=== PATIENT | female | born 1995 | race Caucasian/White ===

== ENCOUNTER 2020-07-29 10:00 | Outpatient (REF) | payer OTHER, SELFPAY ==
[2020-07-29 10:16] LABS: COVID-19 Test Positive (Negative)
== END 2020-07-29 10:01 | disposition home or self-care (01) ==
LOC: HO.LAB 10:00
PROVIDERS: Visit Provider Internal Medicine
DX: Z20.828 Contact with and (suspected) exposure to other viral communicable diseases (principal)
CPT/HCPCS: 87635

== ENCOUNTER 2020-09-19 12:05 | Outpatient (REF) | payer OTHER, SELFPAY ==
[2020-09-19 13:03] LABS: COVID-19 Test Negative (Negative); IDNOW Serial# 55D5AD1C
== END 2020-09-19 12:06 | disposition home or self-care (01) ==
LOC: HO.EMPCOV 12:05
PROVIDERS: PCP Nurse Practitioner Family; Visit Provider Internal Medicine
DX: Z20.828 Contact with and (suspected) exposure to other viral communicable diseases (principal)
CPT/HCPCS: 87635; C9803

== ENCOUNTER 2020-09-26 09:11 | Outpatient (REF) | payer OTHER, SELFPAY ==
[2020-09-26 09:32] LABS: COVID-19 Test Negative (Negative)
== END 2020-09-26 09:12 | disposition home or self-care (01) ==
LOC: HO.EMPCOV 09:11
PROVIDERS: PCP Nurse Practitioner Family; Visit Provider Internal Medicine
DX: Z20.828 Contact with and (suspected) exposure to other viral communicable diseases (principal)
CPT/HCPCS: 87635; C9803

== ENCOUNTER 2020-12-30 14:24 | Outpatient (REF) | payer OTHER, SELFPAY ==
[2020-12-31 07:25] LABS: SARS COV2 IgG Negative (Negative)
== END 2020-12-30 14:25 | disposition home or self-care (01) ==
LOC: HO.HMGCLDS 14:24
PROVIDERS: PCP Nurse Practitioner Family; Visit Provider Nurse Practitioner Family
DX: Z20.822 Contact with and (suspected) exposure to COVID-19 (principal)
CPT/HCPCS: 36415; 86769

== ENCOUNTER 2021-06-15 08:33 | Outpatient (REF) | payer OTHER, SELFPAY ==
[2021-06-15 11:15] LABS: MANUAL DIFF FLAG NO
[2021-06-15 11:40] LABS: Basophils Percent Auto 0.3 % (0-2); Eosinophils Absolute Auto 0.1 X10*3/uL (0.0-0.4); Eosinophils Percent Auto 1.3 % (0-4); Hematocrit 38.6 % (37-47); Hemoglobin 11.9 g/dl (12.0-16.0); Imm Gran Abs Auto 0.03 X10*3/uL (0.00-0.03); Imm Gran Pct Auto 0.3 % (0.0-0.4); Lymphocytes Percent Auto 33.8 % (20-40); Mean Corpuscular HGB Conc 30.8 g/dl (31.0-35.0); Mean Corpuscular Hemoglobin 25.9 pg (27.0-33.0); Mean Corpuscular Volume 83.9 fL (80-98); Mean Platelet Volume 9.8 fL (9.4-12.3); Monocytes Absolute Auto 0.5 X10*3/uL (0.1-1.2); Monocytes Percent Auto 5.7 % (2-11); Neutrophils Absolute Auto 5.3 X10*3/uL (2.0-8.3); Neutrophils Percent Auto 58.6 % (45-73); Platelet Count 400 X10*3/uL (160-400); Red Cell Distribution Width 15.4 % (11.0-16.0)
[2021-06-15 12:09] LABS: TSH reflex Free T4 2.54 uIU/mL (0.32-4.0)
[2021-06-15 12:17] LABS: Alanine Aminotransferase 15 U/L (0-31); Albumin Level 4.2 g/dL (3.5-5.0); Alkaline Phosphatase 107 U/L (39-117); Anion Gap 11 (12-20); Aspartate Amino Transferase 14 U/L (5-31); Bilirubin Total 0.7 mg/dL (0.0-1.0); Blood Urea Nitrogen 13 mg/dL (9-16); Calcium 9.6 mg/dL (8.4-10.2); Carbon Dioxide 24 mmol/L (22-29); Chloride 107 mmol/L (96-108); Cholesterol 175 mg/dL; Estimated Glomerular Filt Rate > 60; Glucose Fasting 95 mg/dL (60-99); HDL Cholesterol 62 mg/dL; LDL Cholesterol Calculated 91 mg/dl; Potassium 4.4 mmol/L (3.3-5.1); Sodium 138 mmol/L (135-145); Total Protein 7.4 g/dL (6.5-8.0); Triglycerides 113 mg/dL
== END 2021-06-15 08:34 | disposition home or self-care (01) ==
LOC: HO.HMGCLDS 08:33
PROVIDERS: PCP Nurse Practitioner Family; Visit Provider Nurse Practitioner Family
DX: Z00.00 Encounter for general adult medical examination without abnormal findings (principal)
CPT/HCPCS: 36415; 80053; 80061; 84443; 85025

== ENCOUNTER 2021-07-13 12:48 | Outpatient (REF) | payer OTHER, SELFPAY ==
[2021-07-13 13:57] LABS: Appearance Urine CLEAR; Color Urine YELLOW; Glucose Urine UA NEG (NEG); Leukocyte Esterase Urine 1+ (NEG); Nitrite Urine NEG (NEG); UACC Culture Trigger YES; Urine Blood NEG (NEG); Urine Ketones NEG (NEG); Urine Protein NEG (NEG-TRACE)
[2021-07-13 14:50] LABS: Bacteria Urine TRACE /LPF; RBC Urine 0 /HPF (0); Squamous Epithelial Cell Urine 1+ /LPF; WBC Clumps Urine NOTED
== END 2021-07-13 12:49 | disposition home or self-care (01) ==
LOC: HO.HMGCLDS 12:48
PROVIDERS: PCP Nurse Practitioner Family; Visit Provider Nurse Practitioner Family
DX: Z00.00 Encounter for general adult medical examination without abnormal findings (principal)
CPT/HCPCS: 81001; 81003; 87086

== ENCOUNTER 2022-06-21 15:16 | Outpatient (REF) | payer OTHER, SELFPAY ==
--- NOTE | ~2022-06-21 | US_ITS ---
EXAMINATION: US PELVIS CLINICAL INFORMATION: Pelvic and perineal pain COMPARISON: None TECHNIQUE: Ultrasound of the pelvis is performed using both transabdominal and transvaginal transducers along with Doppler. Transvaginal imaging is performed due to inadequate visualization transabdominally. FINDINGS: Transabdominal transvaginal study. Uterus is measuring 8.3 x 3 x 5.5 cm. The echogenicity within the canal consistent with an IUD. The canal is not widened. The right ovary is 3.8 x 2.6 x 1.9 cm. No internal vascularity is demonstrated by the plate worker. There is a probable complex cyst measuring 1.8 x 1.2 x 1.4 cm associated with the ovary. No internal vascularity is demonstrated. The borders are poorly defined. No internal vascularity is demonstrated by the plate worker The left ovary is 2.4 x 1.7 x 1.8 cm. Volume 3.9 mL. No internal vascularity is demonstrated by the plate worker. US/US pelvic and transvaginal IMPRESSION: IUD within the uterine canal. Hypoechoic probable complex cyst associated with the right ovary which is nonvascular. The ovaries are within normal limits for size. Adequate vascularity is not demonstrated by the plate worker. Correlation recommended
== END 2022-06-21 15:17 | disposition home or self-care (01) ==
LOC: HO.US 15:16
PROVIDERS: Visit Provider Nurse Practitioner Family
DX: R10.2 Pelvic and perineal pain (principal)
CPT/HCPCS: 76830; 76856

== ENCOUNTER 2022-06-22 10:16 | Outpatient (REF) | payer OTHER, SELFPAY ==
[2022-06-22 11:12] LABS: MANUAL DIFF FLAG NO
[2022-06-22 11:24] LABS: Basophils Percent Auto 0.4 % (0-2); Eosinophils Absolute Auto 0.1 X10*3/uL (0.0-0.4); Eosinophils Percent Auto 0.9 % (0-4); Hematocrit 38.7 % (37.0-47.0); Hemoglobin 12.1 g/dl (12.0-16.0); Imm Gran Abs Auto 0.01 X10*3/uL (0.00-0.03); Imm Gran Pct Auto 0.1 % (0.0-0.4); Lymphocytes Absolute Auto 2.2 X10*3/uL (1.2-4.9); Lymphocytes Percent Auto 32.3 % (20-40); Mean Corpuscular HGB Conc 31.3 g/dl (31.0-35.0); Mean Corpuscular Hemoglobin 25.6 pg (27.0-33.0); Mean Corpuscular Volume 81.8 fL (80.0-98.0); Mean Platelet Volume 9.3 fL (9.4-12.3); Monocytes Absolute Auto 0.3 X10*3/uL (0.1-1.2); Monocytes Percent Auto 4.9 % (2-11); Neutrophils Absolute Auto 4.1 x10*3/uL (2.0-8.3); Neutrophils Percent Auto 61.4 % (45-73); Platelet Count 371 X10*3/uL (160-400); Red Blood Count 4.73 X10*6/uL (4.20-5.50); White Blood Count 6.7 X10*3/uL (4.8-10.8)
[2022-06-22 11:26] LABS: Appearance Urine Clear; Color Urine Yellow; Glucose Urine UA Negative (Negative); Leukocyte Esterase Urine Moderate (2+) (Negative); Nitrite Urine Negative (Negative); Specific Gravity - Urine 1.015 (1.005-1.025); UMIC TRIGGER UACC YES; Urine Blood Negative (Negative); Urine Ketones Negative (Negative); Urine Protein Negative (Neg-Trace)
[2022-06-22 11:34] LABS: Bacteria Urine None Seen (None Seen); Hyaline Casts Urine 0-2 /LPF (0-2); RBC Urine 0-2 /HPF (0-2); UACC Culture Trigger YES
[2022-06-22 11:40] LABS: Alanine Aminotransferase 19 U/L (0-31); Albumin Level 4.2 g/dL (3.5-5.0); Alkaline Phosphatase 99 U/L (39-117); Anion Gap 13 (12-20); Aspartate Amino Transferase 14 U/L (5-31); Bilirubin Total 0.6 mg/dL (0.0-1.0); Blood Urea Nitrogen 10 mg/dL (9-16); Carbon Dioxide 25 mmol/L (22-29); Chloride 105 mmol/L (96-108); Cholesterol 153 mg/dL; Estimated Glomerular Filt Rate > 60; Glucose Fasting 89 mg/dL (60-99); HDL Cholesterol 52 mg/dL; LDL Cholesterol Calculated 89 mg/dl; Potassium 4.3 mmol/L (3.3-5.1); Sodium 139 mmol/L (135-145); Total Protein 7.4 g/dL (6.5-8.0); Triglycerides 61 mg/dL
[2022-06-22 12:19] LABS: Folate > 20.0 ng/mL (> or = 4.0); Vitamin B12 1713 pg/mL (200-900)
== END 2022-06-22 10:17 | disposition home or self-care (01) ==
LOC: HO.HMGCLDS 10:16
PROVIDERS: PCP Nurse Practitioner Family; Visit Provider Nurse Practitioner Family
DX: Z00.00 Encounter for general adult medical examination without abnormal findings (principal); E53.8 Deficiency of other specified B group vitamins
CPT/HCPCS: 36415; 80053; 80061; 81001; 82607; 82746; 84443; 85025; 87086

== ENCOUNTER 2022-06-25 16:10 | Emergency (ER) | payer OTHER, SELFPAY ==
--- NOTE | ~2022-06-25 | CT_ITS ---
EXAMINATION: CT ABDOMEN AND PELVIS WITHOUT CONTRAST CLINICAL INFORMATION: Left lower quadrant abdominal pain COMPARISON: None TECHNIQUE: Multidetector volumetric imaging was performed from the superior aspect of the liver through the pubic symphysis. Sagittal and coronal reformatted images were obtained on the technologist's workstation. This CT examination was performed using dose optimization techniques as appropriate, variously including the following: *Automated exposure control *Adjustment of mA and/or kV according to patient size (this includes techniques or standardized protocols for targeted exams where dose is matched to indication/reason for exam; i.e. extremities or head) *Use of iterative reconstruction technique DLP: 896 mGy-cm FINDINGS: LUNG BASES: The visualized lung bases are unremarkable. LIVER, GALLBLADDER, AND BILIARY TREE: The liver is normal in size, shape, and attenuation. No focal hepatic lesion or biliary ductal dilatation is present. The gallbladder is unremarkable with no evidence of radiopaque gallstones, gallbladder wall thickening, or obvious pericholecystic inflammatory changes. PANCREAS: Unremarkable. SPLEEN: Unremarkable. ADRENAL GLANDS: Unremarkable. KIDNEYS AND URETERS: The kidneys are normal in size, shape, and attenuation. No hydronephrosis, hydroureter, or calculi seen. No perinephric stranding. BLADDER: Unremarkable. GASTROINTESTINAL TRACT: There is no acute abnormality. There is no bowel wall thickening /edema. There is no bowel obstruction. There is a moderate to large volume of stool in the colon. The appendix is normal . The small bowel loops are unremarkable. The stomach is normal. There is no hiatal hernia. ABDOMINAL WALL: No significant hernia is appreciated. LYMPH NODES: Normal. VASCULAR: Unremarkable. PELVIC VISCERA: Uterus is anteverted. IUD in endometrial cavity. No adnexal abnormality. OSSEOUS STRUCTURES: Unremarkable. CT/CT abdomen pelvis wo IV con IMPRESSION: No significant abnormality. Fleischner guidelines were followed.
[2022-06-25 17:06] LABS: MANUAL DIFF FLAG NO
[2022-06-25 17:07] LABS: Basophils Percent Auto 0.3 % (0-2); Eosinophils Absolute Auto 0.1 X10*3/uL (0.0-0.4); Eosinophils Percent Auto 0.7 % (0-4); Hematocrit 39.3 % (37.0-47.0); Hemoglobin 12.3 g/dl (12.0-16.0); Imm Gran Abs Auto 0.03 X10*3/uL (0.00-0.03); Imm Gran Pct Auto 0.3 % (0.0-0.4); Lymphocytes Absolute Auto 2.2 X10*3/uL (1.2-4.9); Lymphocytes Percent Auto 24.4 % (20-40); Mean Corpuscular HGB Conc 31.3 g/dl (31.0-35.0); Mean Corpuscular Hemoglobin 25.7 pg (27.0-33.0); Mean Corpuscular Volume 82.2 fL (80.0-98.0); Mean Platelet Volume 8.9 fL (9.4-12.3); Monocytes Absolute Auto 0.5 X10*3/uL (0.1-1.2); Monocytes Percent Auto 5.1 % (2-11); Neutrophils Absolute Auto 6.3 x10*3/uL (2.0-8.3); Neutrophils Percent Auto 69.2 % (45-73); Platelet Count 334 X10*3/uL (160-400); Red Blood Count 4.78 X10*6/uL (4.20-5.50); Red Cell Distribution Width 15.5 % (11.0-16.0); White Blood Count 9.1 X10*3/uL (4.8-10.8)
[2022-06-25 17:25] LABS: Alanine Aminotransferase 16 U/L (0-31); Albumin Level 4.3 g/dL (3.5-5.0); Alkaline Phosphatase 94 U/L (39-117); Anion Gap 12 (12-20); Aspartate Amino Transferase 12 U/L (5-31); Bilirubin Total 0.4 mg/dL (0.0-1.0); Blood Urea Nitrogen 12 mg/dL (9-16); Calcium 9.9 mg/dL (8.4-10.2); Carbon Dioxide 26 mmol/L (22-29); Chloride 107 mmol/L (96-108); Estimated Glomerular Filt Rate > 60; Glucose Random 94 mg/dL (60-115); Potassium 4.4 mmol/L (3.3-5.1); Sodium 141 mmol/L (135-145); Total Protein 7.4 g/dL (6.5-8.0)
[2022-06-25 17:41] LABS: COVID-19 Test Negative (Negative); IDNOW Serial# 16C4AD1C
[2022-06-25 18:37] VITALS: BP 115/72; PULSE 64; RESP 18; TEMP 37.1; O2SAT 99; BMI 34.7
[2022-06-25] MEDS: Ondansetron ODT 4 MG TAB.RAPDIS TRANSLINGU (18:40)
[2022-06-25 19:00] LABS: Appearance Urine Clear; Color Urine Yellow; Glucose Urine UA Negative (Negative); Leukocyte Esterase Urine Trace (Negative); Nitrite Urine Negative (Negative); PH 5.5 (5.0-9.0); Specific Gravity - Urine 1.025 (1.005-1.025); UMIC TRIGGER UACC YES; Urine Blood Negative (Negative); Urine Ketones Negative (Negative); Urine Protein Negative (Neg-Trace)
[2022-06-25 19:05] LABS: UPreg QC Valid YES; Urine Pregnancy NEGATIVE (NEGATIVE)
[2022-06-25 19:12] LABS: Bacteria Urine None Seen (None Seen); Hyaline Casts Urine 0-2 /LPF (0-2); RBC Urine 0-2 /HPF (0-2); Squamous Epithelial Cell Urine 0-2 /HPF (0-2); WBC Urine 0-5 /HPF (0-5)
[2022-06-25 23:08] VITALS: BP 120/56; PULSE 68; RESP 20; O2SAT 100
--- NOTE | 2022-06-25 23:10 | ED_ITS ---
HPI - Abdominal Pain General Chief Complaint: Abdominal Pain Stated Complaint: lower abd pain Time Seen by Provider: 06/25/22 16:26 Source: patient Mode of arrival: ambulatory Limitations: no limitations History of Present Illness HPI narrative: 26-year-old female presents for left-sided abdominal pain that has been persistent and increasing over the past month. States that her pain is intense, is sharp and stabbing, causes nauseousness and dyspareunia. This pain is debilitating, and prevents her from ambulating. She does have history of endometrial polyp resection. She does not report fevers or chills, abnormal vaginal bleeding, abdominal distension, chest pain or pressure, palpitations, weakness or fatigue. MD elicited complaint: abdominal pain Pertinent past history: other (Endometrial polyp resection) Onset (ago): month(s) (1) Pain Consistency: intermittent Location: LLQ Severity: severe Pain scale (0-10): 9 Quality: aching Radiation: LLQ Migration to: no migration Exacerbating factors: movement Relieving factors: rest Associated symptoms: nausea Related Data Patient : No Home Medications Medication Instructions Recorded Confirmed ascorbate calcium (vitamin C) 500 500 mg PO DAILY 12/01/20 06/20/22 mg tablet folic acid 1 mg tablet 1 mg PO DAILY 12/01/20 06/20/22 levetiracetam 1,000 mg tablet 1,000 mg PO BID 12/01/20 06/20/22 (Keppra) mecobalamin (vitamin B12) 1,000 1,000 mcg PO DAILY 12/01/20 06/20/22 mcg chewable tablet (B12 Active) vitamin B complex (Super B-50 1 cap PO DAILY 12/01/20 06/20/22 Complex capsule) Previous Rx's Medication Instructions Recorded omeprazole 20 mg capsule,delayed 20 mg PO DAILY 90 days #90 caps 04/11/22 release sertraline 100 mg tablet 150 mg PO DAILY 90 days #135 tabs 06/20/22 cefuroxime axetil 500 mg tablet 500 mg PO Q12H 7 days #14 tabs 06/26/22 oxycodone 5 mg tablet 5 mg PO Q6H PRN pain 3 days #12 06/26/22 tabs Allergies Allergy/AdvReac Type Severity Reaction Status Date / Time Antihistamines Allergy Unknown SEIZURES Unverified 06/20/22 18:32 [ANTIHISTAMINES] duloxetine [From CYMBALTA] AdvReac Unknown SEIZURES Unverified 06/20/22 18:32 montelukast [From SINGULAIR] AdvReac Unknown SEIZURES Unverified 06/20/22 18:32 anti-histamines Allergy Unknown Unknown Uncoded 06/20/22 18:32 cymbalta Allergy Unknown seizures Uncoded 06/20/22 18:32 Antihistamine AdvReac Unknown seizures Uncoded 06/20/22 18:32 Louis AdvReac Unknown GI upset Uncoded 06/20/22 18:32 Review of Systems Review of Systems Constitutional: No Fever, No Chills ENT/Mouth: No sore throat Eyes: No Eye Pain, No Swelling, No Redness Cardiovascular: No Chest Pain, No SOB Respiratory: No Cough, No Sputum, No Wheezing Gastrointestinal: positive Nausea, no Vomiting, No Diarrhea, positive left lower quadrant abdominal pain Genitourinary: No Dysuria, no urinary frequency, no Hematuria, no Flank Pain, no hesitancy Musculoskeletal: No joint pain, No Myalgias Skin: No Skin Lesions, No rash Neuro: No Weakness, No Numbness, No Headache Psych: No Anxiety/Panic, No Depression Heme/Lymph: No Bruising, No Lymphadenopathy Endocrine: No Polyuria, No Polydipsia Yes all other systems are reviewed and are negative [facility] Past Medical History Attestation statement: The following information was validated with the patient. Source: old records reviewed Family History Family History Father Substance use disorder Social History Social History Housing: House Alcohol intake: never Patient Tobacco Use Status: Never used Tobacco Second Hand Smoke Exposure: No Advance Directives: No Patient : No service: No Current occupational status: employed Current occupation: [employer] Current occupational exposures/hazards: Yes Cognitive needs: No Hearing needs: No Vision needs: No Physical Exam ED Vital Signs: Vital Signs - 24 hr 06/25/22 18:37 06/25/22 23:08 Temperature 98.7 F Pulse Rate 64 68 Respiratory Rate 18 20 Blood Pressure 115/72 120/56 L Pulse Oximetry 99 100 Oxygen Delivery Method Room Air Room Air BMI result Body Mass Index 34.7 Appearance: Alert. Oriented X3. No acute distress. Eyes: Pupils equal, round and reactive to light. ENT: Pharynx normal. Neck: Normal inspection. Neck supple. CVS: Normal heart rate and rhythm. Pulses normal. Respiratory: No respiratory distress. Breath sounds normal. Abdomen: Soft and left lower quadrant tenderness to palpation. Skin: Skin warm and dry. Normal skin color. Normal skin turgor. Extremities: No lower extremity edema. Gait well balanced well coordinated. Neuro: No motor deficit. No sensory deficit. Cranial nerves 2-12 intact Course Course Course Narrative: 7 hours 51 minute wait time in the emergency department. Labs drawn all patient was in the waiting room, labs are unremarkable, trace leukocyte esterase. 26-year-old female presents with 1 month of consistent colicky left lower quadrant abdominal pain, worsening with her menstrual cycle and movement. States the pain is so bad that she has doubled over, and has a difficult time functioning. She has had multiple appointments for evaluation all with negative workup, had a pelvic ultrasound on 06/21/2022 that indicated a known right ovarian complex cyst with insufficient flow to bilateral ovaries. Patient states to be discouraged because of lack of meaningful findings from prior workups. She does have a history of an ovarian endometrial cyst resection in the past. Does have an IUD in place, anteverted uterus noted on the ultrasound. Patient has dyspareunia without significant bleeding. Feels that her symptoms may be consistent with endometriosis versus pelvic congestion syndrome. Will order CT scan of abdomen and pelvis. CT scan of abdomen pelvis are negative for acute findings requiring emergent intervention. Does redemonstrate ovarian cyst. I do feel that patient's symptoms could be consistent with pelvic congestion syndrome verses endometriosis. She does need to follow-up with marketing operations coordinator, I did refer her to Dr. Amaral for a 2nd opinion. Will treat with cefuroxime for urinalysis positive for UTI with trace leukocyte esterase. Will give oxycodone for pain management. Patient does understand the risks involved with taking and opioid medication, but feels that [id number] medications are ineffective at this time. Patient verbalized understanding of and agrees to plan of care discharge home. Verbalized understanding of signs and symptoms indicating need for emergent intervention. MDM - Abdominal Pain Differential Diagnosis Differential diagnosis: Likely abdominal pain and ovarian cyst Differential diagnosis narrative:: Endometriosis, pelvic congestion syndrome Medical Records Attestation: I reviewed the patient's medical records. Lab Data Attestation: I reviewed the patient's lab results. Result diagrams: 06/25/22 16:59 06/25/22 16:59 Labs: Lab Results 06/25/22 06/25/22 06/25/22 Range/Units 16:59 16:59 16:59 WBC 9.1 (4.8-10.8) X10*3/uL RBC 4.78 (4.20-5.50) X10*6/uL Hgb 12.3 (12.0-16.0) g/dl Hct 39.3 (37.0-47.0) % MCV 82.2 (80.0-98.0) fL MCH 25.7 L (27.0-33.0) pg MCHC 31.3 (31.0-35.0) g/dl RDW 15.5 (11.0-16.0) % Plt Count 334 (160-400) X10*3/uL MPV 8.9 L (9.4-12.3) fL Immature Gran % (Auto) 0.3 (0.0-0.4) % Neut % (Auto) 69.2 (45-73) % Lymph % (Auto) 24.4 (20-40) % Floyd % (Auto) 5.1 (2-11) % Eos % (Auto) 0.7 (0-4) % Baso % (Auto) 0.3 (0-2) % Lymph # (Auto) 2.2 (1.2-4.9) X10*3/uL Floyd # (Auto) 0.5 (0.1-1.2) X10*3/uL Eos # (Auto) 0.1 (0.0-0.4) X10*3/uL Baso # (Auto) 0.0 (0.0-0.2) X10*3/uL Abs Immat Gran (auto) 0.03 (0.00-0.03) X10*3/uL Absolute Neuts (auto) 6.3 (2.0-8.3) x10*3/uL Absolute Nucleated RBC 0.000 (0.0-0.012) X10*3/uL Nucleated RBC % (auto) 0.0 (0.0-0.2) /100WBC Sodium 141 (135-145) mmol/L Potassium 4.4 (3.3-5.1) mmol/L Chloride 107 (96-108) mmol/L Carbon Dioxide 26 (22-29) mmol/L Anion Gap 12 (12-20) BUN 12 (9-16) mg/dL Creatinine 0.77 (0.5-1.4) mg/dL Estim Creat Clear Calc TNP Estimated GFR > 60 Random Glucose 94 (60-115) mg/dL Calcium 9.9 (8.4-10.2) mg/dL Magnesium 2.0 (1.6-2.6) mg/dL Total Bilirubin 0.4 (0.0-1.0) mg/dL AST 12 (5-31) U/L ALT 16 (0-31) U/L Alkaline Phosphatase 94 (39-117) U/L Total Protein 7.4 (6.5-8.0) g/dL Albumin 4.3 (3.5-5.0) g/dL Urine Color Urine Appearance Urine pH (5.0-9.0) Ur Specific [place] (1.005-1.025) Urine Protein (Neg-Trace) mg/dL Urine Glucose (UA) (Negative) mg/dL Urine Ketones (Negative) mg/dL Urine Blood (Negative) Urine Nitrite (Negative) Ur Leukocyte Esterase (Negative) Urine RBC (0-2) /HPF Urine WBC (0-5) /HPF Ur Squamous Epith Cells (0-2) /HPF Urine Bacteria (None Seen) Hyaline Casts (0-2) /LPF Urine Test (NEGATIVE) COVID-19 (THERON) Negative (Negative) COVID-19 Clin Com See Note 06/25/22 06/25/22 Range/Units 18:50 18:50 WBC (4.8-10.8) X10*3/uL RBC (4.20-5.50) X10*6/uL Hgb (12.0-16.0) g/dl Hct (37.0-47.0) % MCV (80.0-98.0) fL MCH (27.0-33.0) pg MCHC (31.0-35.0) g/dl RDW (11.0-16.0) % Plt Count (160-400) X10*3/uL MPV (9.4-12.3) fL Immature Gran % (Auto) (0.0-0.4) % Neut % (Auto) (45-73) % Lymph % (Auto) (20-40) % Floyd % (Auto) (2-11) % Eos % (Auto) (0-4) % Baso % (Auto) (0-2) % Lymph # (Auto) (1.2-4.9) X10*3/uL Floyd # (Auto) (0.1-1.2) X10*3/uL Eos # (Auto) (0.0-0.4) X10*3/uL Baso # (Auto) (0.0-0.2) X10*3/uL Abs Immat Gran (auto) (0.00-0.03) X10*3/uL Absolute Neuts (auto) (2.0-8.3) x10*3/uL Absolute Nucleated RBC (0.0-0.012) X10*3/uL Nucleated RBC % (auto) (0.0-0.2) /100WBC Sodium (135-145) mmol/L Potassium (3.3-5.1) mmol/L Chloride (96-108) mmol/L Carbon Dioxide (22-29) mmol/L Anion Gap (12-20) BUN (9-16) mg/dL Creatinine (0.5-1.4) mg/dL Estim Creat Clear Calc Estimated GFR Random Glucose (60-115) mg/dL Calcium (8.4-10.2) mg/dL Magnesium (1.6-2.6) mg/dL Total Bilirubin (0.0-1.0) mg/dL AST (5-31) U/L ALT (0-31) U/L Alkaline Phosphatase (39-117) U/L Total Protein (6.5-8.0) g/dL Albumin (3.5-5.0) g/dL Urine Color Yellow Urine Appearance Clear Urine pH 5.5 (5.0-9.0) Ur Specific [place] 1.025 (1.005-1.025) Urine Protein Negative (Neg-Trace) mg/dL Urine Glucose (UA) Negative (Negative) mg/dL Urine Ketones Negative (Negative) mg/dL Urine Blood Negative (Negative) Urine Nitrite Negative (Negative) Ur Leukocyte Esterase Trace H (Negative) Urine RBC 0-2 (0-2) /HPF Urine WBC 0-5 (0-5) /HPF Ur Squamous Epith Cells 0-2 (0-2) /HPF Urine Bacteria None Seen (None Seen) Hyaline Casts 0-2 (0-2) /LPF Urine Test NEGATIVE (NEGATIVE) COVID-19 (THERON) (Negative) COVID-19 Clin Com Imaging Data CT scan - abdomen: Attestation: I personally reviewed and interpreted this imaging study as follows: Radiologist's impression: FINDINGS: LUNG BASES: The visualized lung bases are unremarkable.? LIVER, GALLBLADDER, AND BILIARY TREE: The liver is normal in size, shape, and attenuation. No focal hepatic lesion or biliary ductal dilatation is present. The gallbladder is unremarkable with no evidence of radiopaque gallstones, gallbladder wall thickening, or obvious pericholecystic inflammatory changes.? PANCREAS: Unremarkable.? SPLEEN: Unremarkable.? ADRENAL GLANDS: Unremarkable.? KIDNEYS AND URETERS: The kidneys are normal in size, shape, and attenuation. No hydronephrosis, hydroureter, or calculi seen. No perinephric stranding. ? BLADDER: Unremarkable.? GASTROINTESTINAL TRACT: There is no acute abnormality. There is no bowel wall thickening /edema. There is no bowel obstruction. There is a moderate to large volume of stool in the colon. The appendix is normal . The small bowel loops are unremarkable. The stomach is normal. There is no hiatal hernia.? ABDOMINAL WALL: No significant hernia is appreciated.? LYMPH NODES: Normal. VASCULAR: Unremarkable. PELVIC VISCERA: Uterus is anteverted. IUD in endometrial cavity. No adnexal abnormality.? OSSEOUS STRUCTURES: Unremarkable.? CT/CT abdomen pelvis wo IV con IMPRESSION: No significant abnormality.? ? Fleischner guidelines were followed. Discharge Plan Discharge Clinical Impression: Complex ovarian cyst, Pelvic pain, Abdominal pain, Endometriosis, UTI (urinary tract infection) Patient Disposition: Home, Self-Care Instructions: Endometriosis (ED), Ovarian Cyst (ED), Urinary Tract Infection in Women (ED), Abdominal Pain (ED), Pelvic Pain (ED) Additional Instructions: You were evaluated for abdominal pain. CT scan of abdomen indicates anteverted uterus with IUD placement, and constipation. Pelvic ultrasound on 06/21/2022 indicates poor vascularity bilateral ovaries, and right ovarian cyst. Please follow-up with OBGYN. I have referred her to Dr. Amaral. I have ordered oxycodone for pain management. This medication is narcotic and has high risk for addiction and abuse. Do not drive or operate machinery while taking this medication. This medication can delay reaction time, increased risk for falls, cause constipation, and cause drowsiness. Take MiraLax daily to prevent constipation. We are treating you for urinary tract infection. Please take cefuroxime twice a day for next 7 days. Thank you for choosing this emergency department for evaluation. Please follow-up with primary care physician as needed. Return to the emergency department for any new, concerning, or worsening symptoms. Prescriptions: New oxycodone 5 mg tablet 5 mg PO Q6H PRN (Reason: pain) 3 Days Qty: 12 0RF Rx Instructions: Partial Fill upon patient request. cefuroxime axetil 500 mg tablet 500 mg PO Q12H 7 Days Qty: 14 0RF No Action folic acid 1 mg tablet 1 mg PO DAILY levetiracetam [Keppra] 1,000 mg tablet 1,000 mg PO BID vitamin B complex [Super B-50 Complex] Capsule 1 cap PO DAILY ascorbate calcium (vitamin C) 500 mg tablet 500 mg PO DAILY B12 Active 1,000 mcg tablet,chewable 1,000 mcg PO DAILY omeprazole 20 mg capsule,delayed release(DR/EC) 20 mg PO DAILY 90 Days Qty: 90 0RF sertraline 100 mg tablet 150 mg PO DAILY 90 Days Qty: 135 0RF Referrals: Kam Amaral MD [Physician] - 1 week (pelvic pain) Stand Alone Forms: Work/School Release Discharge Date/Time: 06/26/22 00:57
[2022-06-25] MEDS: Acetaminophen 325 MG TABLET 650 MG PO (23:29)
[2022-06-26] MEDS: oxyCODONE HCl Immed Release 5 MG TABLET PO (00:51)
== END 2022-06-26 00:57 | disposition home or self-care (01) ==
PROVIDERS: Physician Assistant Medical; Emergency Provider Emergency Medicine; PCP Nurse Practitioner Family
DX: N83.291 Other ovarian cyst, right side (principal); N80.9 Endometriosis, unspecified; N39.0 Urinary tract infection, site not specified; R10.2 Pelvic and perineal pain; Z20.822 Contact with and (suspected) exposure to COVID-19
CPT/HCPCS: 74176; 80053; 81001; 81003; 81025; 83735; 85025; 87635; 99284

== ENCOUNTER 2022-06-27 14:58 | Outpatient (REF) | payer OTHER, SELFPAY ==
[2022-06-28 06:06] LABS: CT PCR NOT DETECTED (Not Detect.); NG PCR NOT DETECTED (Not Detect.)
== END 2022-06-27 14:59 | disposition home or self-care (01) ==
LOC: HO.LNP 14:58
PROVIDERS: Visit Provider Obstetrics & Gynecology
DX: R10.2 Pelvic and perineal pain (principal); N83.299 Other ovarian cyst, unspecified side; Z11.3 Encounter for screening for infections with a predominantly sexual mode of transmission; Z97.5 Presence of (intrauterine) contraceptive device
CPT/HCPCS: 87086; 87491; 87591; 96372; J0696

== ENCOUNTER 2022-06-27 15:51 | Outpatient (REF) | payer OTHER, SELFPAY | END 2022-06-27 15:52 | disposition home or self-care (01) | LOC: HO.LAB 15:51 | PROVIDERS: Visit Provider Obstetrics & Gynecology | DX: Z13.89 Encounter for screening for other disorder (principal) ==

== ENCOUNTER → 2022-07-03 15:13 | Outpatient (BNVA) | payer OTHER, SELFPAY | PROVIDERS: PCP Nurse Practitioner Family; Visit Provider Obstetrics & Gynecology | DX: Z30.432 Encounter for removal of intrauterine contraceptive device (principal); Z30.09 Encounter for other general counseling and advice on contraception; Z32.02 Encounter for pregnancy test, result negative; R10.2 Pelvic and perineal pain; R31.29 Other microscopic hematuria | CPT/HCPCS: 58301; 81025 ==

== ENCOUNTER 2022-11-07 14:01 | Outpatient (REF) | payer OTHER, MEDICAID, SELFPAY ==
--- NOTE | ~2022-11-07 | US_ITS ---
EXAMINATION: US PELVIS CLINICAL INFORMATION: Ovarian cyst COMPARISON: CT abdomen and pelvis 06/25/2022, ultrasound pelvis 06/21/2022. TECHNIQUE: Ultrasound of the pelvis is performed using both transabdominal and transvaginal transducers along with Doppler. Transvaginal imaging is performed due to inadequate visualization transabdominally. FINDINGS: Uterus: The uterus is anteverted and measures 6.6 x 3.3 x 4.4 cm. The double wall endometrial thickness is 0.4 mm. A single tiny punctate 2 mm calcification in the endometrial canal in the lower uterine segment. The uterus is smooth in contour and has normal myometrial echogenicity. No visible fibroid. Nabothian cysts are present in the cervix. Adnexa: Both ovaries are visualized. There is normal color flow to the adnexa. There is no ovarian torsion. There is no pelvic ascites or fluid collection. Right ovary measures 3.1 x 2.5 x 2.8 cm for a volume of 11.4 mL and contains a 1.9 cm benign simple cyst. Left ovary measures 2.2 x 1.8 x 1.3 cm for a volume of 2.7 mL. US/US pelvic and transvaginal IMPRESSION: No significant abnormality is seen.
== END 2022-11-07 14:02 | disposition home or self-care (01) ==
LOC: HO.US 14:01
PROVIDERS: PCP Nurse Practitioner Family; Visit Provider Obstetrics & Gynecology
DX: N83.299 Other ovarian cyst, unspecified side (principal)
CPT/HCPCS: 76830; 76856

== ENCOUNTER → 2022-11-22 11:12 | Outpatient (BNVA) | payer OTHER, SELFPAY | PROVIDERS: PCP Nurse Practitioner Family; Visit Provider Obstetrics & Gynecology | DX: Z13.89 Encounter for screening for other disorder (principal) ==

== ENCOUNTER 2023-06-20 12:00 | Outpatient (REF) | payer OTHER, MEDICAID, SELFPAY ==
[2023-06-20 13:11] LABS: MANUAL DIFF FLAG NO
[2023-06-20 13:18] LABS: Basophils Percent Auto 0.5 % (0-2); Eosinophils Absolute Auto 0.1 X10*3/uL (0.0-0.4); Eosinophils Percent Auto 0.8 % (0-4); Hematocrit 41.4 % (37.0-47.0); Hemoglobin 13.1 g/dl (12.0-16.0); Imm Gran Abs Auto 0.02 X10*3/uL (0.00-0.03); Imm Gran Pct Auto 0.3 % (0.0-0.4); Lymphocytes Absolute Auto 2.1 X10*3/uL (1.2-4.9); Lymphocytes Percent Auto 28.1 % (20-40); Mean Corpuscular HGB Conc 31.6 g/dl (31.0-35.0); Mean Corpuscular Hemoglobin 27.3 pg (27.0-33.0); Mean Corpuscular Volume 86.3 fL (80.0-98.0); Mean Platelet Volume 9.7 fL (9.4-12.3); Monocytes Absolute Auto 0.3 X10*3/uL (0.1-1.2); Monocytes Percent Auto 3.9 % (2-11); Neutrophils Percent Auto 66.4 % (45-73); Platelet Count 317 X10*3/uL (160-400); Red Cell Distribution Width 14.1 % (11.0-16.0); White Blood Count 7.5 X10*3/uL (4.8-10.8)
[2023-06-20 13:54] LABS: Appearance Urine Clear; Color Urine Dark Yellow; Glucose Urine UA Negative (Negative); Leukocyte Esterase Urine Trace (Negative); Nitrite Urine Negative (Negative); PH 5.5 (5.0-9.0); Specific Gravity - Urine >= 1.030 (1.005-1.025); UMIC TRIGGER UACC YES; Urine Blood Negative (Negative); Urine Ketones Trace mg/dL (Negative); Urine Protein Trace mg/dL (Neg-Trace)
[2023-06-20 14:05] LABS: Bacteria Urine 1+ (None Seen); Hyaline Casts Urine 0-2 /LPF (0-2); RBC Urine 0-2 /HPF (0-2); WBC Urine 0-5 /HPF (0-5)
[2023-06-20 14:33] LABS: Alanine Aminotransferase 19 U/L (0-31); Albumin Level 4.1 g/dL (3.5-5.0); Alkaline Phosphatase 82 U/L (39-117); Anion Gap 14 (12-20); Aspartate Amino Transferase 15 U/L (5-31); Bilirubin Total 0.4 mg/dL (0.0-1.0); Blood Urea Nitrogen 14 mg/dL (9-16); Calcium 10.1 mg/dL (8.4-10.2); Carbon Dioxide 25 mmol/L (22-29); Chloride 109 mmol/L (96-108); Cholesterol 190 mg/dL (<200); Estimated Glomerular Filt Rate > 60; Glucose Fasting 80 mg/dL (60-99); HDL Cholesterol 68 mg/dL (>40); LDL Cholesterol Calculated 104 mg/dL (<100); Potassium 4.5 mmol/L (3.3-5.1); Sodium 143 mmol/L (135-145); Triglycerides 91 mg/dL (<150)
[2023-06-20 14:36] LABS: TSH reflex Free T4 1.52 uIU/mL (0.32-4.0)
[2023-06-20 14:58] LABS: Folate > 20.0 ng/mL (> or = 4.0); Vitamin B12 439 pg/mL (200-900)
== END 2023-06-20 12:01 | disposition home or self-care (01) ==
LOC: HO.HMGCLDS 12:00
PROVIDERS: PCP Nurse Practitioner Family; Visit Provider Nurse Practitioner Family
DX: D64.9 Anemia, unspecified (principal); E53.8 Deficiency of other specified B group vitamins; E78.5 Hyperlipidemia, unspecified
CPT/HCPCS: 36415; 80053; 80061; 81001; 82607; 82746; 84443; 85025

== ENCOUNTER 2023-08-07 12:04 | Outpatient (AMB) | payer OTHER, SELFPAY ==
--- NOTE | 2023-08-07 12:53 | AM.OFFWIN_ITS ---
Intake Vital Signs 08/07/23 13:02 Height 5 ft 9 in BP 122/76 Blood Pressure Location Rt brachial Position Sitting Pulse 77 Pulse Source Pulse Oximeter Temp 97.8 F Temp Source Temporal Artery Scan Pulse Oximetry (%) 98 Oxygen Delivery Method Room Air Intake Visit Reasons: EP, sinus congestion (masked) Intake Note: pt is here for c/o sinus congestion a few weeks Patient Tobacco Use Status: Never used Tobacco Allergies Antihistamines [ANTIHISTAMINES] Allergy (Unknown, Verified 08/07/23 13:22) SEIZURES duloxetine [From CYMBALTA] Adverse Reaction (Unknown, Verified 08/07/23 13:22) SEIZURES montelukast [From SINGULAIR] Adverse Reaction (Unknown, Verified 08/07/23 13:22) SEIZURES anti-histamines Allergy (Unknown, Uncoded 12/19/22 13:01) Unknown cymbalta Allergy (Unknown, Uncoded 12/19/22 13:01) seizures Antihistamine Adverse Reaction (Unknown, Uncoded 12/19/22 13:01) seizures Louis Adverse Reaction (Unknown, Uncoded 12/19/22 13:01) GI upset Do you need a note to return to daycare/school/sports/work: Yes HPI HPI Comments History of Present Illness Details here today w/ c/o sinus congestion for a few weeks w/o any other assoc sx treating with otc oral decongestants w/o relief. [facility] Medical History Seizure disorder Family History Father Substance use disorder Social History Housing: House Alcohol intake: never Patient Tobacco Use Status: Never used Tobacco e-Cigarette/Vaping Use: Never Used Second Hand Smoke Exposure: No service: No Current occupational status: employed Current occupation: [employer] Current occupational exposures/hazards: Yes Cognitive needs: No Hearing needs: No Vision needs: No Female Reproductive History Menstrual Age of Menarche: 12 Review of Systems Const All systems reviewed & are unremarkable except as noted in HPI and below Physical Exam Vital Signs: Last Vital Signs Temp 97.8 F 08/07/23 13:02 Pulse 77 08/07/23 13:02 BP 122/76 11/08/23 13:02 Pulse Ox 98 08/07/23 13:02 Oxygen Delivery Method Room Air 08/07/23 13:02 Const Other: awake alert nad sclera, conjunctiva clear bilat TM intact, purulent effusions bilat nares congestion, frontal and maxillary sinus tenderness bilat, turbinates pale and edematous pharynx wnl speaking in full sentences Assessment & Plan Assessment & Plan (1) Sinusitis: Code(s): J32.9 - Chronic sinusitis, unspecified Qualifiers: Sinusitis location: pansinusitis Chronicity: acute Recurrence: non- recurrent Qualified Code(s): J01.40 - Acute pansinusitis, unspecified Medications: New amoxicillin-pot clavulanate 875-125 mg 1 tab PO BID 7 days 14 tabs 0RF Patient Instructions: take as directed w food, stop oral decongestants, ok to use otc flonase. Coding Level of Care Code Est Pt Level 3 (67313) Diagnoses Acute non-recurrent pansinusitis J01.40 Sinusitis location: pansinusitis Chronicity: acute Recurrence: non-recurrent
[2023-08-07 13:02] VITALS: BP 122/76; PULSE 77; TEMP 36.6; O2SAT 98
== END 2023-08-07 13:22 | disposition home or self-care (01) ==
PROVIDERS: PCP Nurse Practitioner Family; Visit Provider Nurse Practitioner Family
DX: J01.40 Acute pansinusitis, unspecified (principal)
CPT/HCPCS: 99213

== ENCOUNTER 2023-08-29 15:11 | Outpatient (AMB) | payer OTHER, SELFPAY ==
[2023-08-29 15:56] VITALS: BP 110/60; PULSE 93; TEMP 36.2; O2SAT 99; BMI 33.7
--- NOTE | 2023-08-29 15:56 | MHC.OFFWIV ---
Intake Vital Signs 08/29/23 15:56 Height 5 ft 9 in Weight 228 lb BMI 33.7 BP 110/60 Blood Pressure Location Rt brachial Position Sitting Pulse 93 Pulse Source Pulse Oximeter Temp 97.2 F Temp Source Temporal Artery Scan Pulse Oximetry (%) 99 Oxygen Delivery Method Room Air Intake Visit Reasons: EP, sinus congestion (masked) Intake Note: pt is here today for sinus congestion started Patient Tobacco Use Status: Never used Tobacco Allergies Antihistamines [ANTIHISTAMINES] Allergy (Unknown, Verified 08/29/23 15:57) SEIZURES duloxetine [From CYMBALTA] Adverse Reaction (Unknown, Verified 08/29/23 15:57) SEIZURES montelukast [From SINGULAIR] Adverse Reaction (Unknown, Verified 08/29/23 15:57) SEIZURES anti-histamines Allergy (Unknown, Uncoded 12/19/22 13:01) Unknown cymbalta Allergy (Unknown, Uncoded 12/19/22 13:01) seizures Antihistamine Adverse Reaction (Unknown, Uncoded 12/19/22 13:01) seizures Louis Adverse Reaction (Unknown, Uncoded 12/19/22 13:01) GI upset Do you need a note to return to daycare/school/sports/work: Yes HPI HPI Comments History of Present Illness Details This is a 28-year-old female who works as a surgical nurse at [employer] with a past medical history of gastroesophageal reflux disease, seizure disorder (last seizure 3 years ago), anxiety, depression and PTSD presenting for evaluation of sinus pressure, facial pain any cough that she has had for the past 2 days. Patient denies having any fevers, chills, ear pain, sore throat or shortness of breath. Patient has taken oral decongestants only. Patient was initially seen on August 07 and prescribed Flonase and a course of Augmentin which she completed. [facility] Medical History Seizure disorder Family History Father Substance use disorder Social History Housing: House Alcohol intake: never Patient Tobacco Use Status: Never used Tobacco e-Cigarette/Vaping Use: Never Used Second Hand Smoke Exposure: No service: No Current occupational status: employed Current occupation: [employer] Current occupational exposures/hazards: Yes Cognitive needs: No Hearing needs: No Vision needs: No Female Reproductive History Menstrual Age of Menarche: 12 Review of Systems Const All systems reviewed & are unremarkable except as noted in HPI and below Denies chills, Denies fatigue, Denies fever(s), Denies headache(s) and Reports malaise Eyes Reports as per HPI ENT Reports no additional complaints, Denies dry mouth, Reports facial pain, Denies headache(s), Reports sinus pressure and Denies sore throat Card Reports as per HPI Resp Reports as per HPI Skin/Breast Reports system reviewed and no additional complaints, except as documented Neuro Reports no additional complaints and Denies headache(s) Endo Denies fatigue Physical Exam Vital Signs: Last Vital Signs Temp 97.2 F 08/29/23 15:56 Pulse 93 08/29/23 15:56 BP 110/60 08/29/23 15:56 Pulse Ox 99 08/29/23 15:56 Oxygen Delivery Method Room Air 08/29/23 15:56 BMI result Body Mass Index 33.7 Const General: cooperative, healthy appearing, no acute distress, alert and awake Nutritional Appearance: average body habitus Orientation/consciousness: patient oriented x3 Limitations: no limitations HEENT Head: Yes normal to inspection Ears: hearing grossly normal bilaterally, external ears normal, TM's normal bilaterally and EAC's normal General nose exam: Normal external nose present Face and sinus: Yes normal facial exam and Yes sinuses nontender Mouth: Normal oral and palatal mucosa present Teeth and gingiva: dentition normal Throat: Yes posterior oropharynx normal and No postnasal drainage Eyes General: appearance normal, both eyes and all related structures Eyelids: Yes eyelids normal Conjunctivae: conjunctivae normal Sclerae: sclerae normal Corneas: corneas normal Pupils: Equal, round and reactive pupils present EOM: EOMs intact bilaterally Neck Lymphatic: no lymphadenopathy noted Resp Effort & Inspection: normal respiratory effort Auscultation: clear to auscultation bilaterally Cardio Rate: regular rate Rhythm: regular rhythm Neuro General: patient oriented x3 Cranial nerves: Yes Equal, round and reactive pupils present Psych Appearance: grossly normal Mental Status: mental status grossly normal Insight: Good insight present (Psych) Judgement: Good judgement present (Psych) Assessment & Plan Assessment & Plan (1) Sinusitis: Code(s): J32.9 - Chronic sinusitis, unspecified Qualifiers: Chronicity: acute Recurrence: non-recurrent Sinusitis location: pansinusitis Qualified Code(s): J01.40 - Acute pansinusitis, unspecified Plan: Patient will use ibuprofen or Tylenol as needed for discomfort and a work note is provided through Saturday September 02, 2023. Antibiotic therapy is not warranted at this time given her history coupled with examination. Coding Level of Care Code Est Pt Level 3 (60687) Diagnoses Acute non-recurrent pansinusitis J01.40 Chronicity: acute Recurrence: non-recurrent Sinusitis location: pansinusitis Time Spent (min) 20
== END 2023-08-29 16:47 | disposition home or self-care (01) ==
PROVIDERS: PCP Nurse Practitioner Family; Visit Provider Physician Assistant
DX: J01.40 Acute pansinusitis, unspecified (principal)
CPT/HCPCS: 99213

== ENCOUNTER 2024-12-14 08:54 | Outpatient (REF) | payer OTHER, SELFPAY ==
--- OUTSIDE RECORDS SUMMARY | 2024-12-14 09:21 | XMS_ITS | Patient Health Record ---
Author Organization [facility] Address [address] [facility] [place] [address] Care Team Providers Care Grain Grader Name Role Phone Dino Carter Primary Care Provider Unav ailcourtney Harry Jiménez Unavailable [phone] Allergies Allergen (clinical drug ingredient) Drug/Non Drug Allergy documented on EMR Reaction Allergy Type Onset Date Status diphenhydramine Antihistamine Seizures Drug Allergy Active duloxetine Cymbalta Seizures Drug Allergy Active montelukast Singulair Seizures Drug Allergy Activ e Reason For Referral No Information Medications Medication SIG (Take, Route, Frequency, Duration) Notes Start Date End Date Status Sertraline HCl 150 MG 1 capsule Orally O nce a day Active Zoloft Not-Taking Apri Active Folic Acid 1 MG 1 tablet Orally Once a day Active Albuterol Sulfate 108 (90 Base) MCG/ACT 1 puff as needed Inhalation every 4 hrs Active Omeprazole 20 MG 1 capsule 30 minutes before morning meal Orally Once a day Active Ondansetron 8 MG 1 tablet on the tong ue and allow to dissolve as needed Orally Once a day Active Physical Therapy . . . 2-3x/week for 3- 4 weeks 08/01/2023 Active Keppra 1000 MG 1 tablet Orally ever y 12 hrs Active Social History Tobacco Use: Social History Observation Description Date Details (start date - stop date) Never Smoker NA - NA Tobacco Use/Smoking Question Answer Notes Are you a: nonsmoker Additional Findings: Tobacco Non-User Current no n-smoker Alcohol Screen Question Answer Notes Did you have a drink contain ing alcohol in the past year? Yes How often did you have a dri nk containing alcohol in the past year? 2 to 4 times a month (2 points) Points 2 Interpretation Negative Tobacco use other than smoking: Question Answer Notes Are you an other tobacco user? No Problems Problem Type SNOMED Code ICD Code Onset Dates Problem Status W/U Status Risk Notes Problem [id number] Plantar fasciitis, bilateral (M72.2) Active confirmed Dx New problem, Prognosis Uncertain (4) Plan Of Treatment Pending Test Test Name Order Date X ray : Foot, left 3V 03/27/2023 X ray : Foot, right 3V 03/27/2023 [id number] TENDON SHEATH/LIGAMENT 0 04/30/2023 Insurance Providers Payer Name Payer Address Payer Phone Subscriber Number Group Number Insured Name Patient Relationship to Insured Coverage Start Date Coverage End Date [facility] [address] [place] [address] [phone] [id number] Aida Choe Self - patient is the insured Medical (General) History Medical History History ICD Code Anxiety Broken bones Chicken pox covid-19 Depression Epilepsy Reflux ( GERD) Surgical History Surgery Date(Month/Year)
--- OUTSIDE RECORDS SUMMARY | 2024-12-14 09:21 | XMS_ITS | Encounter Summary ---
Author Organization [facility] Address [address] [place] [address] Care Team Providers Care Cafeteria Or Lunchroom Checker Name Role Phone Dino Treadwell MD Primary Care Provider + [phone] Reason for Visit * Reason Onset Date Comments Medication Refill 12/20/2022 Encounter Details Date Type Department Care Team (Late st Contact Info) Description 12/20/2022 Refill [facility] Medical Group Neurology [place] 100 [facility] 206 [place] [phone] Clement Arredondo MD 85 [facility] 815 [place], [place] [id number] Partial symptomatic epilepsy with complex partial seizures, intractable, without status epilepticus (HCC) Social History Tobacco Use Types Packs/Day Years Used Date Smoking Tobacco: Never Smokeless Tobacco: Never Alcohol Use Standard Drinks/Week Comments Yes 1 (1 standard drink = 0.6 oz pur e alcohol) PHQ-2 Answer Date Recorded PHQ-2 Total Score 3 12/01/2019 Sex and Gender Information Value Date Recorded Sex Assigned at Female 03/10/2024 12:58 PM EDT Gender Identity Female 12/19/2022 12:28 PM EDT Sexual Orientation Heterosexual (straight) 12/19 12:28 PM EDT documented as of this encounter Plan of Treatment Not on file documented as of this encounter Visit Diagnoses Diagnosis Partial symptomatic epilepsy with complex partial seizures, intractable, without status epilepticus (HCC) documented in this encounter Care Teams Cafeteria Or Lunchroom Checker Relationship Specialty Start Date End Date Dino Treadwell MD [address] [place] [address] PCP - General Family Medicine 07/27/19 documented as of this encounter
--- OUTSIDE RECORDS SUMMARY | 2024-12-14 09:21 | XMS_ITS | Encounter Summary ---
Author Organization [facility] Address [address] [place] [address] Care Team Providers Care Contemporary Or Modern Dancer Name Role Phone Dino Treadwell MD Primary Care Provider + [phone] Reason for Visit * Reason Onset Date Comments Medication Refill 12/19/2022 Encounter Details Date Type Department Care Team (Late st Contact Info) Description 12/19/2022 Refill [facility] Medical Group Neurology [place] 100 [facility] 206 [place] [phone] Clement Arredondo MD [facility] [place], [place] [phone] Partial symptomatic epilepsy with complex partial seizures, [...] PM EDT documented as of this encounter Miscellaneous Notes * Telephone Encounter - Kelly Christian MA - 12/19/2022 1:04 PM EDT Pt sent refill request through [employer]. Please refill or advise documented in this encounter Plan of Treatment Not on file documented as of this encounter Visit Diagnoses Diagnosis Partial symptomatic epilepsy with complex partial seizures, intractable, without status epilepticus (HCC) documented in this encounter Care Teams Contemporary Or Modern Dancer Relationship Specialty Start Date End Date Dino Treadwell MD [address] [place] [address] PCP - General Family Medicine 07/27/19 documented as of this encounter
--- OUTSIDE RECORDS SUMMARY | 2024-12-14 09:21 | XMS_ITS | Encounter Summary ---
Author Organization [facility] Address [address] [place] [address] Care Team Providers Care Department Chairperson Name Role Phone Dino Treadwell MD Primary Care Provider Encounter Details Date Type Department Care Team (Late st Contact Info) Description 03/20/2024 Scanned Document [facility] Neurosurgery [address] [place] [phone] Neurosurgery, Scan Social History Tobacco Use Types Packs/Day Years [...] documented as of this encounter Visit Diagnoses Not on filedocumented in this encounter Care Teams Department Chairperson Relationship Specialty Start Date End Date Dino Treadwell MD [address] [place] [address] PCP - General Family Medicine 07/27/19 documented as of this encounter
--- OUTSIDE RECORDS SUMMARY | 2024-12-14 09:21 | XMS_ITS | Encounter Summary ---
Author Organization [facility] Address [address] [place] [address] Care Team Providers Care Edge Burnisher Name Role Phone Dino Treadwell MD Primary Care Provider + [phone] Reason for Visit * Reason Onset Date Comments Medication Refill 05/26/2023 Encounter Details Date Type Department Care Team (Late st Contact Info) Description 05/26/2023 Refill [facility] Medical Group Neurology [place] 100 [facility] 206 [place] [phone] Clement Arredondo MD 85 [facility] 815 [place], [place] [phone] Partial symptomatic epilepsy with complex partial seizures, [...] (HCC) documented in this encounter Care Teams Edge Burnisher Relationship Specialty Start Date End Date Dino Treadwell MD [address] [place] [address] PCP - General Family Medicine 07/27/19 documented as of this encounter
--- OUTSIDE RECORDS SUMMARY | 2024-12-14 09:21 | XMS_ITS | Encounter Summary ---
Author Organization [facility] Address [address] [place] [address] Care Team Providers Care Lubrication Supervisor Name Role Phone Dino Treadwell MD Primary Care Provider + [phone] Reason for Visit * Reason Comments Medication Refill Encounter Details Date Type Department Care Team ([facility] st Contact Info) Description 12/11/2024 Refill [facility] Neurology [place] 100 [facility] [place] [address] [place] [phone] Clement Arredondo MD [facility] 8[address] [place] [address] Partial symptomatic epilepsy with complex partial seizures, [...] Miscellaneous Notes * Telephone Encounter - Kelly [place] Christian - 12/11/2024 10:47 AM EDT Refill requested through [employer]. Please refill or advise documented in this encounter Plan of Treatment Not on file documented as of this encounter Visit Diagnoses Diagnosis Partial symptomatic epilepsy with complex partial seizures, intractable, without status epilepticus (HCC) documented in this encounter Care Teams Lubrication Supervisor Relationship Specialty Start Date End Date Dino Treadwell MD [address] [place] [address] PCP - General Family Medicine 07/27/19 documented as of this encounter
--- OUTSIDE RECORDS SUMMARY | 2024-12-14 09:21 | XMS_ITS | Encounter Summary ---
Author Organization [facility] Address [address] [place] [address] Care Team Providers Care Medical Office Manager Name Role Phone Dino Treadwell MD Primary Care Provider [phone] Encounter Details Date Type Department Care Team (Late st Contact Info) Description 12/07/2019 Scanned Document [facility] Neuroscience [facility] [address] [place] [phone] Clement Arredondo MD [address] [place] [address] Social History Tobacco Use Types Packs/Day Years [...] on filedocumented in this encounter Care Teams Medical Office Manager Relationship Specialty Start Date End Date Dino Treadwell MD [address] [facility] [place] PCP - General Family Medicine 07/27/19 documented as of this encounter
--- OUTSIDE RECORDS SUMMARY | 2024-12-14 09:21 | XMS_ITS ---
Author Name [facility] Organization Unknown History of Medication Use Medication Directions Dispensed Refills Start Date End Date Stat us sertraline (ZOLOFT) 25 MG tablet Take 4 tablets (100 mg total) by mouth daily. For 30 Days. 08/03/2019 active levETIRAcetam (KEPPRA) 500 MG tablet TAKE 2 TABLETS BY MOUTH TWICE A DAY 12/19/2022 03/20/2024 active vitamin B-12 (CYANOCOBALAMIN) 100 MCG tablet Take 50 mcg by mouth daily. active Problems Problem Status Onset Date Problem Type Date of Resoluti on Source Intractable epilepsy active 2019-08-[address] [facility] Depression active 2019-08-[address] [facility] Partial symptomatic epilepsy with complex partial seizures, intractable, without status epilepticus (HCC) active [facility] Anxiety active 2019-08-[address] [facility] Encounters Encounter Type Encounter Reason Primary Diagnosis Location Date Ambulatory Localization-related (focal) (partial) symptomatic epilepsy and epileptic syndromes with complex partial seizures, intractable, without status epilepticus Localization-related (focal) (partial) symptomatic epilepsy and epileptic syndromes with complex partial seizures, intractable, without status epilepticus [facility] 03/20/2024 Ambulatory Localization-rel ated (focal) (partial) symptomatic epilepsy and epileptic syndromes with complex partial seizures, intractable, without status epilepticus [facility] 12/01/2021 Care Team Organization Name Specialty Phone Email Start Date End Da te [facility] Primary Care 03/20/2024 [facility] Primary Care 12/01/2021 022 [facility] MARIE Primary [facility] 12/01/2021
--- OUTSIDE RECORDS SUMMARY | 2024-12-14 09:21 | XMS_ITS | Clinical Summary ---
Author Organization [facility] Address [address] [place] [address] Care Team Providers Care House Registry Rn Name Role Phone Dino Treadwell MD Primary Care Provider + [phone] Allergies Active Allergy Reactions Criticality Noted Date Comments Fexofenadine-Pseudoephe d Er Other (See Comments) 12/01/2019 seizures Duloxetine Hcl Other (See Comments) 12/01/2019 seizues Lamotrigine Other (See Comments) 12/01/2019 Memory loss and flat affect Other GI Intolerance/Nausea/V omiting Low 12/01/2019 Medications Medication Sig Dispensed Refills Start Date End Date Status sertraline (ZOLOFT) 25 MG tablet Take 4 tablets (100 mg total) by mouth daily. For 30 Days. 1 08/03/2019 Active vitamin B-12 (CYANOCOBALAMIN) 100 MCG tablet Take 0.5 tablets (50 mcg total) by mouth daily. Active levonorgestrel-et hinyl estradiol (AVIANE,ALESSE,LE SSINA) 0.1-20 MG-MCG per tablet Take 1 tablet by mouth daily. Active folic acid (FOLVITE) 1 MG tabletIndications :Partial symptomatic epilepsy with complex partial seizures, intractable, without status epilepticus (HCC) TAKE 1 TABLET BY MOUTH EVERY DAY 90 tablet 3 03/03/2024 Active zonisamide (ZONEGRAN) 100 MG capsuleIndication s:Partial symptomatic epilepsy with complex partial seizures, intractable, without status epilepticus (HCC) Take 4 capsules (400 mg total) by mouth nightly. Increase to 400 mg nightly as directed 120 capsule 11 04/20/2024 Active levETIRAcetam (KEPPRA) 500 MG tabletIndications :Partial symptomatic epilepsy with complex partial seizures, intractable, without status epilepticus (HCC) TAKE 2 TABLETS BY MOUTH TWICE A DAY 360 tablet 3 12/11/2024 Active levETIRAcetam (KEPPRA) 500 MG tabletIndications :Partial symptomatic epilepsy with complex partial seizures, intractable, without status epilepticus (HCC) Take 5 tablets (2,500 mg total) by mouth daily. 1000 mg AM, 1500 mg PM 450 tablet 3 03/20/2024 Discontinued Active Problems Problem Noted Date Diagnosed Date Intractable epilepsy 08/06/2019 Anxiety 08/06/2019 Depression 08/06/2019 Encounters Date Type Department Care Team Description 12/11/2024 [facility] Neurology [place] [address] [place] [address] [place] [address] Clement Arredondo MD Partial symptomatic epilepsy with complex partial seizures, intractable, without status epilepticus (HCC) from Last 3 Months Family History Medical History Relation Name Comments Cancer Father Anxiety disorder Mother Depression Mother Diabetes Mother Hypertension Mother Asthma Sister Relation Name Status Comments Father Mother Sister Social History Tobacco Use Types Packs/Day Years Used Date Smoking Tobacco: Never Smokeless Tobacco: Never Tobacco Cessation:Counseling Given: Not Answered Alcohol Use Standard Drinks/Week Comments Yes 1 (1 standard drink = 0.6 oz pur e alcohol) PHQ-2 Answer Date Recorded PHQ-2 Total Score 3 12/01/2019 Sex and Gender Information Value Date Recorded Sex Assigned at Female 03/10/2024 12:58 PM EDT Gender Identity Female 12/19/2022 12:28 PM EDT Sexual Orientation Heterosexual (straight) 12/19 12:28 PM EDT Last Filed Vital Signs Vital Sign Reading Time Taken Comments Blood Pressure 115/71 03/20/2024 12:32 PM EDT Pulse 75 03/20/2024 12:32 PM EDT Temperature 37.1 ??C (98.8 ??F) 12/01/2021 12:[address] Respiratory Rate 16 12/01/2021 12:55 PM EST Oxygen Saturation 98% 12/01/2021 12:55 PM EST Inhaled Oxygen Concentration - - Weight 99.8 kg (220 lb) 03/20/2024 12:32 PM EDT Height 177.8 cm (5' 10 ) 03/20/2024 12:32 PM EDT Body Mass Index 31.57 03/20/2024 12:32 PM EDT Plan of Treatment Health Maintenance Due Date Last Done Comments Hepatitis C Virus Screening 1994 HIV Screening 2007 DTaP/Tdap/Td Vaccines (1 - Tdap) 2013 Hepatitis B Vaccines (1 of 3 - 19+ 3-dose series) 2013 Pap Smear (Ages 21-65) 2015 Influenza Vaccine 04/30/2024 09/17/2014 COVID-19 Vaccine ( - 2023-2 5 season) 2024 HPV Vaccines Aged Out No longer eligi ble based on patient's age to complete this topic Pneumococcal Vaccine: Pediat braulio (0-5 Years) and At-Risk Patients (6 to 49 Years) Aged Out No longer eligible b ased on patient's age to complete this topic Care Teams House Registry Rn Relationship Specialty Start Date End Date Dino Treadwell MD [address] [facility] [address] [place] [address] PCP - General Family Medicine 07/27/19
--- OUTSIDE RECORDS SUMMARY | 2024-12-14 09:21 | XMS_ITS ---
Author Organization [facility] Address [address] [place] [address] Care Team Providers Care Cable Worker Helper Name Role Phone Dino Carter Primary Care Provider Unav ailable Harry Jiménez Unavailable [phone] Allergies Allergen (clinical drug ingredient) Drug/Non Drug Allergy documented on EMR Reaction Allergy Type Onset Date Status diphenhydramine Antihistamine Seizures Drug Allergy Active duloxetine Cymbalta Seizures Drug Allergy Active montelukast Singulair Seizures Drug Allergy Activ e REASON FOR VISIT Heel pain Medications Medication SIG (Take, Route, Frequency, Duration) Notes Start Date End Date Status Sertraline HCl 150 MG 1 capsule Orally O nce a day Active Zoloft Not-Taking Omeprazole 20 MG 1 capsule 30 minutes before morning meal Orally Once a day Active Ondansetron 8 MG 1 tablet on the tong ue and allow to dissolve as needed Orally Once a day Active Keppra 1000 MG 1 tablet Orally ever y 12 hrs Active Apri Active Folic Acid 1 MG 1 tablet Orally Once a day Active Albuterol Sulfate 108 (90 Base) MCG/ACT 1 puff as needed Inhalation every 4 hrs Active Physical Therapy . . . 2-3x/week for 3- 4 weeks 08/01/2023 Active Social History Tobacco Use: Social History [...] Are you an other tobacco user? No Vital Signs Height 5ft 9in in 08/01/2023 Weight 220 lbs 08/01/2023 BMI 32.48 kg/m2 08/01/2023 Encounters Encounter Location Date Provider Diagnosis [facility] [place] [address] [place] [id number] 08/01/2023 Harrysilvia GarciaJessy Pain in right foot M79.671 and Plantar fasciitis M72.2 Assessments Encounter Date Diagnosis (ICD Code) Assessment Notes Treatment Notes Treatment Clinical Notes Section Notes 08/01/2023 Pain in right foot (ICD-10 - M79.671) 08/01/2023 Plantar fasciitis (ICD-10 - M72.2) Plan Of Treatment Medication Medication Name Sig Start Date Stop Date Notes Physical Therapy . . . 2-3x/week for 3-4 weeks 08/01/2023 Next Appt Details Follow Up: prn, Reason: Progress Notes * Aida CALABRESEDOB:[birth year] (28 yo F)Acc No.[id number]:08/01/2023 Progress Note Patient:?Дмитрий Aida Provider:?Harry Jiménez DPM :1995???Age:28 Y???Sex:Female D ate:08/01/2023 Address:[address] [place] [id number] Pcp:BARBARA Lay Subjective: * Chief Complaints: * ???Heel pain * HPI: ???Heel pain:?Location:?Proximal plantar aspect of Heel , B/L , RIGHT greater than Left.?Treatments:?rest , change in shoes , gel cushions , Pre-ken innersoles , medication ( motrin, tylenol, Aspercream, Voltaren gel) , stretching , massage , ice, AFO-nightsplint?, corticosteriod injection (1).? * ROS:?General/Constitutional:?Nausea?denies.?Vomiting?denies.?Hunger Thirst?denies.?Loss appetite?denies.?Chills?denies.?Fatigue?denies.?Fever?denies.?Night Sweats?denies.?Unexplained weight loss?denies.?Unexplained weight gain?denies.?HEENTM:?Dentures?denies.?Dizziness?denies.?Glasses/contacts?admits.?Retinopathy?de nies.?Blurred/double vision?denies.?TMJ?denies.?Discharge/drainage?denies.?Implants?denies.?Sore throat?denies.?Dental implants?denies.?Hard of hearing ?denies.?Difficulty chewing/swallowing/speaking?denies.?Nose bleeds?denies.?Sore mouth?denies.?Respiratory:?On Oxygen?denies.?Pneumonia/pleurisy?denies.?Bronchitis?denies.?Emphysema?denies.?C oughing?denies.?Cough blood?denies.?Shortness of breath?denies.?Wheezing?denies.?Cardiovascular:?Pacemaker?denies.?MVP?denies.?WPW?denies.?CHF?denies.?Heart attack?denies.?Septal defect?denies.?Rapid beat?denies.?Chest pain ?denies.?Atrial Fib.?denies.?Murmur/Palpitations?denies.?Gastrointestinal:?Hemorrhoids?admits.?Stomach/Abdominal pain?denies.?Dark blood stool?denies.?Irritable bowel ?denies.?Constipation?denies.?Diarrhea?denies.?Hematology:?Swelling?denies.?Clots?denies.?Varicose Veins?denies.?Bruising?denies.?Bleeding problem?denies.?Genitourinary:?Blood urine?denies.?Frequent/Painfu/urination/bladder control?denies.?Kidney stones?denies.?Infection (UTI)?denies.?Nephropathy?denies.?sex trans dis (STD)?denies.?Prostate?denies.?Musculoskeletal:?Hammertoes?denies.?Bunions?denies.?Back Pain?admits.?Muscle Cramps/ Resting?denies.?Muscle cramps / walking?denies.?Generalized aches and pains?admits.?Weakness?denies.?Integ.:?Hernandez?denies.?Scars?denies.?Corns/calluses?admits.?Ingrown nails?denies.?Painful nails?denies.?Open Sores?denies.?Rashes?denies.?Neurologic:?Difficulty sleeping?denies.?Brain disorder?denies.?Numbness?denies.?Balance trouble?denies.?Confusion?denies.?Fainting/blackouts?denies.?Tingling?denies.?Tr emors?denies.? * Medical History:? * Surgical History:?No Surgica l History documented. * Hospitalization/Major Diagno stic Procedure:?No Hospitalization History. * Family History:?Mother: leni moreno, diagnosed with Diabetic - NIDDM, Unspecified essential hypertension.?Father: , kidney/liver disease, diagnosed with Unspecified essential hypertension, Other malignant neoplasm of unspecified site.? Father had Cholangiocarcinoma. * Social History:?Tobacco Use:?Tobacco Use/Smoking?Are you a:?nonsmoker ?Additional Findings: Tobacco Non-User?Current non-smoker ?Tobacco use other than smoking?Are you an other tobacco user??No ???Drugs/Alcohol:?Drugs?Have you used drugs other than those for medical reasons in the past 12 months??No ?Alcohol Screen?Did you have a drink containing alcohol in the past year??Yes ?How often did you have a drink containing alcohol in the past year??2 to 4 times a month (2 points) ?Points?2 ?Interpretation?Negative ???Miscellaneous:?Caffeine: yes, frequency:. ?Children: yes, 1. ?Exercise: yes, running, walking. ?Marital status: . 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 * Medications:?TakingAlbuterol Sulfate 108 (90 Base) MCG/ACT Aerosol Powder Breath Activated 1 puff as needed Inhalation every 4 hrsApri Folic Acid 1 MG Tablet 1 tablet Orally Once a dayKeppra 1000 MG Tablet 1 tablet Orally every 12 hrsOmeprazole 20 MG Capsule Delayed Release 1 capsule 30 minutes before morning meal Orally Once a dayOndansetron 8 MG Tablet Disintegrating 1 tablet on the tongue and allow to dissolve as needed Orally Once a daySertraline HCl 150 MG Capsule 1 capsule Orally Once a dayTaking Albuterol Sulfate 108 (90 Base) MCG/ACT Aerosol Powder Breath Activated 1 puff as needed Inhalation every 4 hrsTaking Apri Taking Folic Acid 1 MG Tablet 1 tablet Orally Once a dayTaking Keppra 1000 MG Tablet 1 tablet Orally every 12 hrsTaking Omeprazole 20 MG Capsule Delayed Release 1 capsule 30 minutes before morning meal Orally Once a dayTaking Ondansetron 8 MG Tablet Disintegrating 1 tablet on the tongue and allow to dissolve as needed Orally Once a dayTaking Sertraline HCl 150 MG Capsule 1 capsule Orally Once a dayNot-Taking/PRNZoloft Medication List reviewed and reconciled with the patientNot-Taking/PRN Zoloft Medication List reviewed and reconciled with the patient * Allergies:?Cymbalta: Seizure sSingulair: SeizuresAntihistamine: Seizuresyes[Allergies Verified] Objective: * Vitals:?Ht: 5ft 9in, Wt:220, BMI:32.48, Shoe size: 9 womens, Ht-cm: 175.26 cm, Wt-k.79 kg. * Examination: ???Heel Pain: ?INSPECTION REVEALS:?Pain on Palpation to Plantar Fascia med. and central bands, intrinsic musc., infra-calcaneal bursa, and med calc tubercle, B/L , RIGHT greater than Left.? Assessment: * Assessment: 1.?Pain in right foot - M79. 671?2.?Plantar fasciitis - M72.2 (Primary), Chronic problem, Worse (4)? Plan: * Treatment: * Procedure Codes:? * Preventive Medicine:? ??Counseling:?Discussion:?-13: Office or other outpatient visit for the evaluation and management of an established patient, which required a medically appropriate history and/or examination and LOW level of DECISION MAKING for: 1 STABLE ACUTE UNCOMPLICATED PROBLEM, 2 OR MORE MINOR PROBLEMS, OR 1 STABLE CHRONIC PROBLEM, THAT POSE(S) A LOW RISK FOR MORBIDITY/MORTALITY. The visit on the day of the encounter encompassed interpreting the data and educating the patient as to the nature of their condition, treatment options available according to their individual PMH, meds, allergies, and overall health/living conditions, as well as any potential risks or complications that may occur from a failure to adhere to, and participate in, the recommended course of therapy. The discussion included a complete verbal, and/or written explanation of the examination results, any x-rays taken, the proposed diagnosis, and outline of the treatment plan. A schedule for future care needs was also explained. The patient verbalized an understanding of the instructions at this time and agreed to be an active participant in their treatment. If the patient should think of any questions or concerns after the visit, I have encouraged the patient to call the office.?Physical Therapy:?Discussed the potential short and senior care benefits of physical therapy including pain relief, improved function for activity of daily life, return to exercise, increased quality of life. We discussed the usual/customary PT treatment schedule of 2-3 times per week for 4 weeks to as much as 12 weeks depending on insurance approval/coverage. We discussed various PT treatment modalities including, but not limited to, gate training, muscular stabilization, stretching, deep tissue therapeutic massage, ultrasound, TENS, iontophoresis, fluidotherapy, laser therapy, hydrotherapy, contrast ice/heat bath, and passive as well as active ROM exercises. Questions re: PT including visit amounts, rates of success, and goals were answered to the patient's satisfaction. The patient verbally confirmed the medical necessity and use of PT therapy treatment for their MSK condition.? * Follow Up:?prn * Images: * Sign off status: Completed true * Provider:?Harry Jiménez DPM Date:?2022 Generated for Coby alvarado/Shabbir/Diallo on:?12/14/2024 09:21 AM EDT History and Physical Notes * HPI (History of Present Illness) Category Sub-Category Detail Notes Category Not es Heel pain Location: Proximal plantar aspect of Heel , B/L , RIGHT greater than Left Treatments: rest , change in nilsa es , gel cushions , Pre-ken innersoles , medication ( motrin, tylenol, Aspercream, Voltaren gel) , stretching , massage , ice, AFO-nightsplint , corticosteriod injection (1) Examination Category Sub-Category Detail Notes Category Not es Heel Pain INSPECTION REVEALS: Pain on Palp ation to Plantar Fascia med. and central bands, intrinsic musc., infra-calcaneal bursa, and med calc tubercle, B/L , RIGHT greater than Left
--- OUTSIDE RECORDS SUMMARY | 2024-12-14 09:21 | XMS_ITS | Encounter Summary ---
Author Organization [facility] Address [address] [place] [address] Care Team Providers Care Street Roller Engineer Name Role Phone Dino Treadwell MD Primary Care Provider + [phone] Encounter Details Date Type Department Care Team (Late st Contact Info) Description 12/01/2021 Scanned Document [facility] Neurology [place] [address] [facility] [address] [place] [id number] Clement Arredondo MD [address] [facility] [address] [place] [address] Social History Tobacco Use Types Packs/Day Years [...] on filedocumented in this encounter Care Teams Street Roller Engineer Relationship Specialty Start Date End Date Dino Treadwell MD [address] [facility] JOVANY Botello PCP - General Family Medicine 07/27/19 documented as of this encounter
[2024-12-14 10:25] LABS: MANUAL DIFF FLAG NO
[2024-12-14 10:32] LABS: Basophils Absolute Auto 0.1 X10*3/uL (0.0-0.2); Basophils Percent Auto 0.6 % (0-2); Eosinophils Absolute Auto 0.1 X10*3/uL (0.0-0.4); Hematocrit 41.6 % (37.0-47.0); Hemoglobin 13.3 g/dl (12.0-16.0); Imm Gran Abs Auto 0.03 X10*3/uL (0.00-0.03); Imm Gran Pct Auto 0.4 % (0.0-0.4); Lymphocytes Absolute Auto 2.7 X10*3/uL (1.2-4.9); Mean Corpuscular Hemoglobin 27.9 pg (27.0-33.0); Mean Corpuscular Volume 87.2 fL (80.0-98.0); Mean Platelet Volume 9.4 fL (9.4-12.3); Monocytes Absolute Auto 0.4 X10*3/uL (0.1-1.2); Monocytes Percent Auto 4.6 % (2-11); Neutrophils Absolute Auto 4.9 x10*3/uL (2.0-8.3); Neutrophils Percent Auto 60.4 % (45-73); Platelet Count 306 X10*3/uL (160-400); Red Blood Count 4.77 X10*6/uL (4.20-5.50); Red Cell Distribution Width 13.7 % (11.0-16.0); White Blood Count 8.1 X10*3/uL (4.8-10.8)
[2024-12-14 10:53] LABS: Appearance Urine Clear; Color Urine Dark Yellow; Glucose Urine UA Negative (Negative); Leukocyte Esterase Urine Negative (Negative); Nitrite Urine Negative (Negative); PH 5.5 (5.0-9.0); Specific Gravity - Urine >= 1.030 (1.005-1.025); Urine Blood Negative (Negative); Urine Ketones Trace mg/dL (Negative); Urine Protein Negative (Neg-Trace)
[2024-12-14 11:41] LABS: Folate > 20.0 ng/mL (> or = 4.0); Vitamin B12 523 pg/mL (200-900)
[2024-12-14 12:25] LABS: Alanine Aminotransferase 25 U/L (0-31); Albumin Level 4.1 g/dL (3.5-5.0); Alkaline Phosphatase 84 U/L (39-117); Anion Gap 10 (12-20); Aspartate Amino Transferase 18 U/L (5-31); Bilirubin Total 0.4 mg/dL (0.0-1.0); Blood Urea Nitrogen 15 mg/dL (9-16); Calcium 9.3 mg/dL (8.4-10.2); Carbon Dioxide 25 mmol/L (22-29); Chloride 109 mmol/L (96-108); Cholesterol 169 mg/dL (<200); Estimated Glomerular Filt Rate > 60; Glucose Fasting 90 mg/dL (60-99); HDL Cholesterol 60 mg/dL (>40); LDL Cholesterol Calculated 91 mg/dL (<100); Potassium 3.9 mmol/L (3.3-5.1); Sodium 140 mmol/L (135-145); TSH reflex Free T4 2.25 uIU/mL (0.32-4.0); Total Protein 7.5 g/dL (6.5-8.0); Triglycerides 90 mg/dL (<150)
== END 2024-12-14 08:55 | disposition home or self-care (01) ==
LOC: HO.HMGCLDS 08:54
PROVIDERS: PCP Nurse Practitioner Family; Visit Provider Nurse Practitioner Family
DX: Z00.00 Encounter for general adult medical examination without abnormal findings (principal); Z13.6 Encounter for screening for cardiovascular disorders; E53.8 Deficiency of other specified B group vitamins
CPT/HCPCS: 36415; 80053; 80061; 81003; 82607; 82746; 84443; 85025

== ENCOUNTER 2025-01-13 11:02 | Outpatient (AMB) | payer OTHER, SELFPAY ==
--- NOTE | 2025-01-13 11:09 | A.OFFPC_ITS ---
Vital Signs 01/13/25 11:12 Height 5 ft 11 in Weight 258 lb BMI 36.0 BP 118/60 Blood Pressure Location Rt brachial Position Sitting Pulse 86 Pulse Source Pulse Oximeter Temp 98.1 F Temp Source Oral Pulse Oximetry (%) 100 Oxygen Delivery Method Room Air Intake Visit Reasons: Annual Physical, Est Patient Intake Note: Pt is here today for her PE Is last menstrual period known: Yes Last menstrual period: 01/12/25 Allergies Antihistamines [ANTIHISTAMINES] Allergy (Unknown, Verified 01/13/25 11:35) SEIZURES duloxetine [From CYMBALTA] Adverse Reaction (Unknown, Verified 01/13/25 11:35) SEIZURES montelukast [From SINGULAIR] Adverse Reaction (Unknown, Verified 01/13/25 11:35) SEIZURES anti-histamines Allergy (Unknown, Uncoded 01/13/25 11:35) Unknown cymbalta Allergy (Unknown, Uncoded 01/13/25 11:35) seizures Antihistamine Adverse Reaction (Unknown, Uncoded 01/13/25 11:35) seizures Louis Adverse Reaction (Unknown, Uncoded 01/13/25 11:35) GI upset Medication List - Last Reconciled 01/13/25 by ANANYA Valentino- albuterol sulfate 90 mcg/actuation (Ventolin HFA) 2 puffs inhalation Q6H PRN ascorbate calcium (vitamin C) 500 mg PO DAILY folic acid 1 mg PO DAILY levetiracetam (Keppra) 1,000 mg PO BID omeprazole 20 mg PO DAILY 90 days ondansetron 8 mg PO Q12H PRN 30 days sertraline 150 mg (1.5 x 100 mg) PO DAILY 90 days vitamin B complex (Super B-50 Complex capsule) 1 cap PO DAILY Tobacco use date assessed: 01/13/25 Dental Screening Dental Screen Date: 01/13/25 Did you have a dental visit in the last 12 months?: Yes Did you have a dental problem in the last 6 months where you did not have access to dental care?: No Was dental information given to patient?: Patient has dentist HPI Annual Physical, Est Patient HPI Details History of Present Illness The patient is a 29-year-old female presenting for a wellness visit and general physical examination. She has been diagnosed with epilepsy, which is managed by a neurologist. She reports no symptoms related to her condition such as seizures during the visit. The patient denies any systemic symptoms like fevers, chills, or respiratory problems. She also denies gastrointestinal disturbances, including blood in stool, constipation, and diarrhea. Regarding her mental state, the patient denies any thoughts of self-harm or harm to others, indicating stable mental health. Professionally, she reports being very busy but claims to be managing well and thriving in her job. She regularly attends gynecological appointments for Pap smears. The patient is actively planning to conceive her second child. (labs already resulted) Health Maintenance - Routine Pap smears for cervical cancer screening - Neurological follow-up for epilepsy johanny giordano - General wellness examination Social History - Employment: Very busy at her job, elias [employer] well in her professional endeavors - Family Planning: Actively trying to co nceive her second child Review of Systems - Constitutional: Denies fevers, chills - Gastrointestinal: Denies blood in stoo l, constipation, diarrhea - Respiratory: Denies chest pain, shortn ess of breath - Psychiatric: Denies suicidal ideation, homicidal ideation Physical Exam General: Cooperative, healthy appearing, comfortable, no acute distress and well developed, obese Orientation: Patient oriented x3 Limitations: No limitations Head: Normal to inspection Ears: Hearing grossly normal bilaterally Nose: Normal external nose present Face and sinus: Normal facial exam Eyes: Appearance normal, both eyes and all related structures Neck: Normal visual inspection and Yes full ROM Respiratory: Normal respiratory effort and able to speak in complete sentences. Clear to auscultation bilaterally Cardiovascular: Regular rate and rhythm. Normal S1 and S2 GI: Normal to inspection. Soft to palpation and nontender Skin: No rashes or lesions noted Neuro: Patient oriented x3, has a neurologist for seizures and epilepsy Extremities: Normal to inspection Results Plan During the wellness visit, I observed her existing management for epilepsy remains stable under the care of her neurologist. She is encouraged to maintain current gynecological screenings, such as routine Pap smears. Her plans to conceive a second child were noted, and I recommended she continue with her health maintenance activities while being vigilant for any changes in her epilepsy during this period. No further acute interventions were necessary at this time. Discussion Notes During our discussion, I reinforced the importance of maintaining her current treatment for epilepsy under the supervision of her neurologist. We reviewed her family planning aspirations, and I provided guidance on continuing her routine gynecological screenings to ensure reproductive health. Proper monitoring of her condition through regular neurology and gynecology consultations was emphasized to mitigate any potential health risks associated with . Her willingness to proceed with these recommendations indicates understanding and agreement. Patient Instructions - Continue regular follow-ups with your neurologist for epilepsy management. - Maintain routine Pap smears and gyneco logical care. - Keep track of any unusual symptoms or changes and report them promptly. - Proceed with family planning discussio ns and activities while monitoring epilepsy. - Seek immediate medical attention if ex periencing any new or worsening symptoms. PFSH Medical History Seizure disorder Family History Father Substance use disorder Social History Housing: House Alcohol intake: never Patient Tobacco Use Status: Never used Tobacco e-Cigarette/Vaping Use: Never Used Second Hand Smoke Exposure: No service: No Current occupational status: employed Current occupation: [employer] Current occupational exposures/hazards: Yes Cognitive needs: No Hearing needs: No Vision needs: No Female Reproductive History Menstrual Age of Menarche: 12 Date of last menstrual period: 01/12/25 Questionnaire PHQ-9 Over the last 2 weeks, how often have you been bothered by any of the following problems? 1. Little interest or pleasure in doing things: not at all 2. Feeling down, depressed, or hopeless: not at all 3. Trouble falling or staying asleep, or sleeping too much: nearly every day 4. Feeling tired or having little energy: nearly every day 5. Poor appetite or overeating: several days 6. Feeling bad about yourself - or that you are a failure or have let yourself or your family down: not at all 7. Trouble concentrating on things, such as reading the newspaper or watching television: not at all 8. Moving or speaking so slowly that other people could have noticed. Or the opposite - being so fidgety or restless that you have been moving around a lot more than usual: not at all 9. Thoughts that you would be better off or of hurting yourself in some way: not at all Total score: 7 Depression Screening Interpretation: Negative Depression Screening Done: Yes 95046 - PHQ-9 Billing: Yes Source: Developed by Drs. Leo Lewis, Lara Hardy, Dominick Duran and colleagues, with an educational cheko from [employer]. Thrive Questionnaire Date Thrive assessed: 01/06/25 I am a: Patient What is your living situation today?: I have a steady place to live Within the past 12 months, did the food you bought not last and you didn't have the money to get more?: Never true Within the past 12 months, did you worry whether your food would run out before you got money to buy more?: Never true Do you have trouble paying for medicines?: No Do you have trouble getting transportation to medical appointments?: No Do you have trouble paying your heating and electricity bill?: No Do you have trouble taking care of your child, family member or friend?: No Do you have trouble with day-to-day activities such as bathing, preparing meals, shopping, managing finances, etc.?: No Are you currently unemployed and looking for a job?: No Are you interested in more education?: No Please select the resources that you would like help with: None Currently or been in a relationship where the following occur: No concerns reported THRIVE Score: 0 AUDIT C Alcohol Use Questionnaire (AUDIT-C) 1. How often do you have a drink containing alcohol?: 2-3 times a week 2. How many drinks containing alcohol do you have on a typical day when you are drinking?: 1 or 2 3. How often do you have six or more drinks on one occasion?: Never Total Score: 3 COLBY-7 AMB Questionnaire COLBY-7 Date COLBY - 7 assessed: 12/19/22 Feeling nervous, anxious, or on edge: 1 = Several days Not being able to stop or control worryin = Several days Worrying too much about different things: 1 = Several days Trouble relaxin = Nearly every day Being so restless that it is hard to sit still: 3 = Nearly every day Becoming easily annoyed or irritable: 1 = Several days Feeling afraid as if something awful might happen: 0 = Not at all Total COLBY-7 score (0-4 normal; 5-9 mild; 10-14 moderate; 15-21 severe): 10 Source: Developed by Drs. Leo Lewis, Lara Hardy, Dominick Duran and colleagues, with an educational cheko from [employer]. COLBY-7 Assessment Billing COLBY-7 Assessment Tool: COLBY-7 Assessment 36714 Physical exam (Primary Care) Vital Signs: Last Vital Signs Temp 98.1 F 01/13/25 11:12 Pulse 86 01/13/25 11:12 BP 118/60 01/13/25 11:12 Pulse Ox 100 01/13/25 11:12 Oxygen Delivery Method Room Air 01/13/25 11:12 BMI result Body Mass Index 36.0 Tobacco/Smoking Status: Tobacco use Status Tobacco use date assessed 01/13/25 01/13/25 11:17 Patient Tobacco Use Status Never used Tobacco 01/13/25 11:12 e-Cigarette/Vaping Use Never Used 01/13/25 11:12 PHQ-9: PHQ-9 Score PHQ-9: Total score 7 01/13/25 11:12 Depression Screening Interpretation: Negative Thrive Assessment: Date of Thrive Assessment Date Thrive assessed 01/06/25 01/13/25 11:12 Currently or been in a relationship where the following occur: No concerns reported Coding Level of Care Code Est Pt Prev Care 18-39y(37425) Diagnoses Physical exam Z00.00 Additional Codes PHQ-9 - 10295 - PHQ-9 Billing: Yes ([id number]) COLBY-7 Assessment Billing - COLBY-7 Assessment Tool: COLYB-7 Assessment 42433 ([id number]) Assessment & Plan Assessment & Plan (1) Physical exam: Code(s): Z00.00 - Encounter for general adult medical examination without abnormal findings Category: Medical Plan .
[2025-01-13 11:12] VITALS: BP 118/60; PULSE 86; TEMP 36.7; O2SAT 100; BMI 36.0
--- OUTSIDE RECORDS SUMMARY | 2025-01-13 13:14 | XMS_ITS ---
Author Organization [facility] Address [address] [place] [address] Care Team Providers Care Rayon Tester Name Role Phone Dino Carter Primary Care Provider Unav ailable Harry Jiménez Unavailable [phone] Allergies Allergen (clinical drug ingredient) Drug/Non Drug [...] 08/01/2023 Encounters Encounter Location Date Provider Diagnosis [facility] [place] [address] [place] [phone] 08/01/2023 Harrysilvia GarciaJessy Pain in right foot [...] * Aida CALABRESEDOB:[birth year] (28 yo F)Acc No.[id number]:08/01/2023 Progress Note Patient:?Дмитрий Aida Provider:?Harry Jiménez DPM :1995???Age:28 Y???Sex:Female D ate:08/01/2023 Address:[address] [place] [phone] Pcp:BARBARA Lay Subjective: * Chief Complaints: * [...] the office.?Physical Therapy:?Discussed the potential short and penitentiary benefits of physical therapy including pain relief, [...] Jiménez DPM Date:?2022 Generated for Coby alvarado/Shabbir/Diallo on:?01/13/2025 01:14 PM EDT History and Physical Notes * HPI [...]
--- OUTSIDE RECORDS SUMMARY | 2025-01-13 13:14 | XMS_ITS | Encounter Summary ---
Author Organization [facility] Address [address] [place] [id number] Care Team Providers Care Audio Narrator Name Role Phone Dino Treadwell MD Primary Care Provider Encounter Details Date Type Department Care Team (Late st Contact Info) Description 03/20/2024 Scanned Document [facility] Neurosurgery [address] [place] [phone] Neurosurgery, Scan Social History Tobacco Use Types Packs/Day Years Used Date Smoking Tobacco: Never Smokeless Tobacco: Never Alcohol Use Standard Drinks/Week Comments Yes 1 (1 standard drink = 0.6 oz pur e alcohol) PHQ-2 Answer Date Recorded PHQ-2 Total Score 3 12/01/2019 Comments No Sex and Gender Information Value Date Recorded Sex Assigned at Female 03/10/2024 12:58 PM EDT Legal Sex Female 4:00 PM EDT Gender Identity Female 12/19/2022 12:28 PM EDT Sexual Orientation Heterosexual (straight) 12/19 12:28 PM EDT documented as of this encounter Plan of Treatment Not on file documented as of this encounter Visit Diagnoses Not on filedocumented in this encounter Care Teams Audio Narrator Relationship Specialty Start Date End Date Dino Treadwell MD [address] [facility] [place] [address] PCP - General Family Medicine 07/27/19 documented as of this encounter
--- OUTSIDE RECORDS SUMMARY | 2025-01-13 13:14 | XMS_ITS | Encounter Summary ---
Author Organization [facility] Address [address] [place] [address] Care Team Providers Care Graduate Recruiter Name Role Phone Dino Treadwell MD Primary Care Provider + [phone] Encounter Details Date Type Department Care Team (Late st Contact Info) Description 12/01/2021 Scanned Document [facility] Neurology [place] 100 [facility] 206 [place] [phone] Clement Arredondo MD [facility] [address] [place] [address] Social History Tobacco Use Types Packs/Day Years [...] on filedocumented in this encounter Care Teams Graduate Recruiter Relationship Specialty Start Date End Date Dino Treadwell MD [address] [place] [address] PCP - General Family Medicine 07/27/19 documented as of this encounter
--- OUTSIDE RECORDS SUMMARY | 2025-01-13 13:14 | XMS_ITS | Encounter Summary ---
Author Organization [facility] Address [address] [place] [address] Care Team Providers Care Bariatric Program Coordinator Name Role Phone Dino Treadwell MD Primary Care Provider + [phone] Reason for Visit * Reason Onset Date Comments Medication Refill 12/19/2022 Encounter Details Date Type Department Care Team (Late st Contact Info) Description 12/19/2022 Refill [facility] Group Neurology [place] 100 [facility] 206 [place] [phone] Clement Arredondo MD [facility] [address] [place], [place] [phone] Partial symptomatic epilepsy with complex partial seizures, [...] PM EDT Pt sent refill request through [employer]. Please refill or advise documented in this encounter Plan of Treatment Not on file documented as of this encounter Visit Diagnoses Diagnosis Partial symptomatic epilepsy with complex partial seizures, intractable, without status epilepticus (HCC) documented in this encounter Care Teams Bariatric Program Coordinator Relationship Specialty Start Date End Date Dino Treadwell MD [address] [place] [address] PCP - General Family Medicine 07/27/19 documented as of this encounter
--- OUTSIDE RECORDS SUMMARY | 2025-01-13 13:14 | XMS_ITS | Clinical Summary ---
Author Organization [facility] Address [address] [place] [address] Care Team Providers Care Blade Grinder Name Role Phone Dino Treadwell MD Primary Care Provider + [phone] Allergies Active Allergy Reactions Criticality Noted Date Comments Fexofenadine-Pseudoephe d Er Other (See Comments) 12/01/2019 seizures Duloxetine Hcl Other (See Comments) 12/01/2019 seizues Lamotrigine Other (See Comments) 12/01/2019 Memory loss and flat affect Other GI Intolerance/Nausea/V omiting Low 12/01/2019 Medications sertraline (ZOLOFT) 25 MG tablet Take 4 tablets (100 mg total) by mouth daily. For 30 Days. 1 9 Active vitamin B-12 (CYANOCOBALAMIN) 100 MCG tablet Take 0.5 tablets (50 mcg total) by mouth daily. Active levonorgestrel-e thinyl estradiol (AVIANE,ALESSE,L ESSINA) 0.1-20 MG-MCG per tablet Take 1 tablet by mouth daily. Active folic acid (FOLVITE) 1 MG tabletIndication s:Partial symptomatic epilepsy with complex partial seizures, intractable, without status epilepticus (HCC) TAKE 1 TABLET BY MOUTH EVERY DAY 90 tablet 3 4 Active zonisamide (ZONEGRAN) 100 MG capsuleIndicatio ns:Partial symptomatic epilepsy with complex partial seizures, intractable, without status epilepticus (HCC) Take 4 capsules (400 mg total) by mouth nightly. Increase to 400 mg nightly as directed 120 capsule 11 4 Active levETIRAcetam (KEPPRA) 500 MG tabletIndication s:Partial symptomatic epilepsy with complex partial seizures, intractable, without status epilepticus (HCC) TAKE 2 TABLETS BY MOUTH TWICE A DAY 360 tablet 3 5 Active Active Problems Problem Noted Date Diagnosed Date Intractable epilepsy 08/06/2019 Anxiety 08/06/2019 Depression 08/06/2019 Encounters Date Type Department Care Team Description 12/11/2024 [facility] Neurology [place] [address] [place] [address] [place] [address] Clement Arredondo MD Partial symptomatic epilepsy with [...] 2015 Influenza Vaccine 04/30/2024 09/17/2014 COVID-19 Vaccine (1 - 2023-2 5 season) 2024 HPV Vaccines Aged Out No longer eligi ble based on patient's age to complete this topic Pneumococcal Vaccine: Pediat braulio (0-5 Years) and At-Risk Patients (6 to 49 Years) Aged Out No longer eligible b ased on patient's age to complete [place] [id number] [facility] Care Teams Blade Grinder Relationship Specialty Start Date End Date Dino Treadwell MD [address] [facility] [place] [address] PCP - General Family Medicine 07/27/19
--- OUTSIDE RECORDS SUMMARY | 2025-01-13 13:14 | XMS_ITS | Encounter Summary ---
Author Organization [facility] Address [address] [place] [address] Care Team Providers Care Acrobatic Dancer Name Role Phone Dino Treadwell MD Primary Care Provider [phone] Encounter Details Date Type Department Care Team (Late st Contact Info) Description 12/07/2019 Scanned Document [facility] Neuroscience [facility] [address] [place] [phone] lCement Arredondo MD [address] [place] [id number] Social History Tobacco Use Types Packs/Day Years Used Date Smoking Tobacco: Never Smokeless Tobacco: Never Alcohol Use Standard Drinks/Week Comments Yes 1 (1 standard drink = 0.6 oz pur e alcohol) PHQ-2 Answer Date Recorded PHQ-2 Total Score 3 12/01/2019 Comments Unknown Sex and Gender Information Value Date Recorded Sex Assigned at Female 03/10/2024 12:58 PM EDT Legal Sex Female 4:00 PM EDT Gender Identity Female 12/19/2022 12:28 PM EDT Sexual Orientation Heterosexual (straight) 12/19 12:28 PM EDT documented as of this encounter Plan of Treatment Not on file documented as of this encounter Visit Diagnoses Not on filedocumented in this encounter Care Teams Acrobatic Dancer Relationship Specialty Start Date End Date Dino Treadwell MD [address] [place] [address] PCP - General Family Medicine 07/27/19 documented as of this encounter
--- OUTSIDE RECORDS SUMMARY | 2025-01-13 13:14 | XMS_ITS | Encounter Summary ---
Author Organization [facility] Address [address] [place] [address] Care Team Providers Care Machinist Helper Name Role Phone Dino Treadwell MD Primary Care Provider + [phone] Reason for Visit * Reason Onset Date Comments Medication Refill 05/26/2023 Encounter Details Date Type Department Care Team (Late st Contact Info) Description 05/26/2023 Refill [facility] Neurology [place] 100 [facility] 206 [place] [phone] Clement Arredondo MD [address] [facility] [place] [place] [address] [place], [place] [phone] Partial symptomatic epilepsy with complex partial seizures, [...] (HCC) documented in this encounter Care Teams Machinist Helper Relationship Specialty Start Date End Date Dino Teradwell MD [address] [place] [address] PCP - General Family Medicine 07/27/19 documented as of this encounter
--- OUTSIDE RECORDS SUMMARY | 2025-01-13 13:14 | XMS_ITS | Encounter Summary ---
Author Organization [facility] Address [address] [place] [address] Care Team Providers Care Pocket Setter Name Role Phone Dino Treadwell MD Primary Care Provider + [phone] Reason for Visit * Reason Onset Date Comments Medication Refill 12/20/2022 Encounter Details Date Type Department Care Team (Late st Contact Info) Description 12/20/2022 Refill [facility] Neurology [place] 100 [facility] 206 [place] [phone] Clement Arredondo MD 85 [facility] 815 [place], [place] [phone] Partial symptomatic epilepsy with complex partial seizures, [...] (HCC) documented in this encounter Care Teams Pocket Setter Relationship Specialty Start Date End Date Dino Treadwell MD [address] [place] [address] PCP - General Family Medicine 07/27/19 documented as of this encounter
--- OUTSIDE RECORDS SUMMARY | 2025-01-13 13:14 | XMS_ITS | Patient Health Record ---
[facility] Address [address] [facility] [place] [address] Care Team Providers Care Yarn Examiner Name Role Phone Dino Carter Primary Care Provider Unav ailcourtney Harry Jiménez Unavailable [phone] Allergies Allergen (clinical drug ingredient) Drug/Non Drug [...] Problem Status W/U Status Risk Notes Problem [id number] Plantar fasciitis, bilateral (M72.2) Active confirmed Dx New problem, Prognosis Uncertain (4) Plan Of Treatment Pending Test Test Name Order Date X ray : Foot, left 3V 03/27/2023 X ray : Foot, right 3V 03/27/2023 [id number] TENDON SHEATH/LIGAMENT 0 04/30/2023 Insurance Providers Payer Name Payer Address Payer Phone Subscriber Number Group Number Insured Name Patient Relationship to Insured Coverage Start Date Coverage End Date [facility] [address] [place] [id number] Aida Choe Self - patient is the insured Medical (General) History Medical History History ICD Code Anxiety Broken bones Chicken pox covid-19 Depression Epilepsy Reflux ( GERD) Surgical History Surgery Date(Month/Year)
== END 2025-01-13 11:43 | disposition home or self-care (01) ==
LOC: HO.HMCC 11:03
PROVIDERS: PCP Nurse Practitioner Family; Visit Provider Nurse Practitioner Family
DX: Z00.00 Encounter for general adult medical examination without abnormal findings (principal)

== ENCOUNTER → 2025-01-13 11:02 | Outpatient (BNVA) | payer OTHER, SELFPAY | PROVIDERS: PCP Nurse Practitioner Family; Visit Provider Nurse Practitioner Family | DX: Z00.00 Encounter for general adult medical examination without abnormal findings (principal); G40.909 Epilepsy, unspecified, not intractable, without status epilepticus | CPT/HCPCS: 96127 ==